=== PATIENT | male | born 1980 | race Caucasian/White ===

== ENCOUNTER 2025-04-16 17:31 | Inpatient (IN) ==
[2025-04-16] MEDS: LORazepam 2 MG/ML VIAL IVP STA ×4 (18:28→19:35)
[2025-04-16] MEDS: SODIUM CHLORIDE 0.9% 1,000 ML IV STA (18:46)
[2025-04-16] MEDS: ONDANSETRON 4 MG/2 ML VIAL IVP STA (18:46)
[2025-04-16 18:53] LABS: HCT - HEMATOCRIT 38.0 % (42.0-52.0); HGB - HEMOGLOBIN 13.1 g/dL (14.0-18.0); MEAN PLATELET VOLUME 11.3 fL (7.4-11.4); NRBC ABSOLUTE COUNT (AUTO) 0.00 x10^3/uL; NUCLEATED RED BLOOD CELLS AUTO 0.0 /100WBC; PLT - PLATELET COUNT 89 10^3/uL (130-450); RED CELL DISTRIBUTION WIDTH 13.9 % (12.0-15.0)
--- NOTE | 2025-04-16 18:54 | ED Physician Documentation ---
History of Present Illness Stated complaint Stated Complaint: DIZZY Chief complaint Chief Complaint: General History obtained from History obtained from: Patient History of Present Illness Timing: Prior to arrival Additonal information Additional information: Patient is a 45-year-old male presenting to the emergency department with agitation being brought in by ambulance from [facility] with concerns for possible stroke as he was having some right knee weakness and right hand weakness. Patient has no history of stroke he admitted himself to [facility] yesterday hector rmed by eye to a staff. Patient able to recall some of his history here but appears to be having active hallucinations and tremors at this time his CIWA on arrival is 19 and he missed his afternoon dose of Ativan after receiving 1 mg every 4 hours. Patient drinks about half a gallon of vodka regularly he has no history of seizures. Discussed with [facility] duff believed patient was having some increased alterations in mentation as well as recurrent falls. He was not following commands as well as increased weakness in right hand when trying to grab the safety bar in the bathroom. WHen first admitted he was able to ambulate but when he was downtrending with increased inability to ambulate. Concerns he cannot meet his own activities of daily living. He must be able to ambulate ands he doesn't fall. They would not accept him back to [facility] if he is cleared here in the emergency department. Meds/Allgy Allergies Allergies Allergy/AdvReac Type Severity Reaction Status Date / Time cashew nut Allergy Unknown Unknown Verified 04/16/25 17:40 PFSH Active Problems All Active Problems (Updated 04/16/25 @ 22:07 by Noah Luke DNP) Delirium tremens (Acute) Social History Social History (Updated 04/16/25 @ 20:51 by Rosio Winn PA-C) Smoking Status: Smoker current status unk Do you feel safe in your home environment?: Yes History of physical, verbal, emotional, or financial abuse?: No POLST Patient has POLST: No Exam Exam Vital Signs: Vital Signs x48h Temp Pulse Resp BP Pulse Ox 04/16/25 23:02 37.4 C 87 16 115/74 100 04/16/25 22:11 119 H 16 154/100 H 100 04/16/25 22:05 129 H 22 184/124 H 99 04/16/25 22:00 118 H 0 L 205/131 H 99 04/16/25 21:56 116 H 0 L 182/126 H 98 04/16/25 21:50 100 22 189/127 H 100 04/16/25 21:48 111 H 0 L 184/99 H 72 L 04/16/25 21:09 99 18 169/91 H 96 04/16/25 20:54 105 H 23 159/95 H 99 04/16/25 20:00 118 H 20 168/112 H 92 04/16/25 17:40 36.7 C 116 H 18 156/97 H 97 Constitutional Agitated on arrival with some distress and diaphoretic Eyes PERRL, EOMs intact bilaterally and conjunctivae normal Neck/C-Spine visual inspection normal Lymph no lymphadenopathy noted Chest inspection of chest normal Respiratory breath sounds equal bilaterally, normal respiratory effort and clear to auscultation bilaterally Cardiovascular Tachycardia Extremities Patient has significant tremors at rest Neurology Patient having obvious hallucinations here in the ED GCS 12 on arrival does appear to have normal speech but not following commands abnormal gait too unstable to even stand alone Psychiatry ANO x 1 Results Vitals Vitals: Vital Signs - 24 hr 04/16/25 17:40 04/16/25 18:04 04/16/25 20:00 Temperature 36.7 C Temperature Source Temporal Artery Scan Pulse Rate 116 H 118 H Respiratory Rate 18 20 Blood Pressure 156/97 H 168/112 H O2 Saturation 97 92 O2 Source Room air Room air FiO2 (%) Pain Intensity 7 0 04/16/25 20:54 04/16/25 21:09 04/16/25 21:48 Temperature Temperature Source Pulse Rate 105 H 99 111 H Respiratory Rate 23 18 0 L Blood Pressure 159/95 H 169/91 H 184/99 H O2 Saturation 99 96 72 L O2 Source Room air Room air FiO2 (%) Pain Intensity 04/16/25 21:50 04/16/25 21:56 04/16/25 22:00 Temperature Temperature Source Pulse Rate 100 116 H 118 H Respiratory Rate 22 0 L 0 L Blood Pressure 189/127 H 182/126 H 205/131 H O2 Saturation 100 98 99 O2 Source Ambu bag Room air Ambu bag FiO2 (%) Pain Intensity 04/16/25 22:05 04/16/25 22:11 04/16/25 23:02 Temperature 37.4 C Temperature Source Core Pulse Rate 129 H 119 H 87 Respiratory Rate 22 16 16 Blood Pressure 184/124 H 154/100 H 115/74 O2 Saturation 99 100 100 O2 Source Ambu bag Mechanical ventilator FiO2 (%) 100 Pain Intensity Oxygen O2 Source Mechanical ventilator Labs Labs: Laboratory Tests 04/16/25 04/16/25 18:47 18:47 WBC 5.4 RBC 3.40 L Hgb 13.1 L Hct 38.0 L MCV 111.8 H MCH 38.5 H MCHC 34.5 RDW 13.9 Plt Count 89 L MPV 11.3 Neut # (Auto) 3.9 Lymph # (Auto) 1.0 L Stokes # (Auto) 0.5 Eos # (Auto) 0.1 Baso # (Auto) 0.0 Absolute Nucleated RBC 0.00 Nucleated RBC % 0.0 Manual Slide Review Indicated WBC Morphology NORMAL APPEARANCE Platelet Estimate DECREASED (<130,000) Platelet Morphology NORMAL APPEARANCE RBC Morph Micro Appear 2+ MACROCYTOSIS 1+ STOMATOCYTES Sodium 134 L Potassium 3.8 Chloride 97 L Carbon Dioxide 27 Anion Gap 10.0 BUN 8 Creatinine 0.6 Estimated GFR (MDRD) 144 Glucose 105 H Calcium 9.3 Magnesium 1.4 L Total Bilirubin 2.0 H AST 78 H ALT 35 Alkaline Phosphatase 93 Total Protein 6.6 Albumin 4.0 Globulin 2.6 Albumin/Globulin Ratio 1.5 PD Medical Decision Making ED course Complexity details: reviewed old records and reviewed results ED course: Patient 45-year-old female CIWA's 19 on arrival being brought from by tomorrow for recurrent falls and difficulty following commands with increased weakness specifically noted to his right knee where he has had multiple falls he drink about half a gallon of vodka regularly was sent over by eye to after receiving oral Ativan every 4 hours with progressively worsening symptoms including increased tremors difficulty following commands and recurrent falls. Patient was essentially wheelchair-bound when transferred from [facility] to the emergency department. On arrival patient has a CIWA of 19. He has significant tremors and appears to be hallucinating here in the ED he is IV Ativan dose of 2 mg was ordered initially here in the ED. Multiple attempts were made to redirect patient and have him stay here in the ED howeverREstraints Patient placed for patient as he was attempting to get out of bed he is A and O x 1 not answering questions appropriately hallucinating unable to even stand without assistance due to significant tremors he had active hallucinations stating he needs to move out of his house. Says he would call the police if he has troubles while he is at home with ambulating. He reports he wants to go home but unable to provide where his home is or how he would get there. He is unable to state the date stating stating it is 1919 and that he is unable to report what town or hospital he is in. Patient was given phenobarbital and 8 of Ativan without relief. Patient was placed on a Precedex drip and intubated here in the emergency department for concerns of persistent agitation here in the emergency department. He has no leukocytosis his CMP shows no significant MILES he has some mild hypomagnesemia and elevation of AST at 78 most likely consistent with alcohol abuse. Urine analysis pending at this time see intubation note via [facility]. CXR shows NG and ET in place. CT head shows no acute findings. Discussed case with [facility] nurse practitioner who accepts patient to the ICU for first year of your alcohol withdrawals with seizures Restraint Peiw-le-Ebk[facility] Immediate Situation Face to Face Evaluation Date: 04/16/25 Face to Face Evaluation Time: 19:40 Restraint Type: Violent, physical Patient's Reaction & Behaviors Safety: Physically unsafe, Non-compliant and Unable to Follow Commands Verbal: Demanding, Screaming/Yelling and Swearing Harm: Actual harm to others and Potential harm to self Physical: Aggressive behavior, Fighting restraints, Spitting and Kicking Other: Attempting removal of medically necessary device(s) Behavioral Condition Attitude: Guarded Behavior: Uncooperative and Belligerent Orientation: Person Mood: Angry and Anxious Behavioral Condition Comments: Patient anxious and attempting to leave he is not safe to himself for others. he does not know where he is or the date and has no plans on if he is to leave Evaluation Pertinent History/Illicit Drugs/Medications/Results: Patient labs are downtrends . Plan Need to Initiate/Renew Violent or Chemical Restraint: Plan to renew at one hour and re-evaluate patient at 8pm for re-evaluation of symptoms. Patient remains beligerent despite physical restraints and ativan treatment, severe withdrawal symptoms and CIWA of 19 when restraints placed.
[2025-04-16 19:02] LABS: SLIDE REVIEW? Indicated
[2025-04-16 19:21] LABS: PLATELET ESTIMATE, MANUAL DECREASED (<130,000) (NORMAL); PLATELET MORPHOLOGY NORMAL APPEARANCE (NORMAL)
[2025-04-16 19:22] LABS: WBC MORPHOLOGY (MULTIPLE) NORMAL APPEARANCE (NORMAL)
[2025-04-16 19:42] LABS: ALT ALANINE AMINOTRANSFERASE 35.0 IU/L (10-60); AST ASPARTATE AMINOTRANSFERASE 78.0 IU/L (10-42); BUN - BLOOD UREA NITROGEN 8.0 mg/dL (6-20); CARBON DIOXIDE - CO2 27.0 mmol/L (21-32); CREATININE 0.6 mg/dL (0.6-1.3); GFR - MDRD 144.0 (>89)
--- NOTE | 2025-04-16 20:27 | XRAY Report ---
PROCEDURE: XR Knee 4+V RT INDICATIONS: right knee pain and swelling from injury TECHNIQUE: 4 views of the knee(s) were acquired. COMPARISON: None. FINDINGS: Bones: No fractures or dislocations. Mild tricompartmental osteoarthritis is seen more notably in medial femoral tibial compartments. No significant patellar subluxation. No suspicious bony lesions. Soft tissues: Small knee joint effusion. Chondrocalcinosis in medial and lateral femoral tibial compartments are noted. IMPRESSION: 1. No acute right knee fracture or dislocation. 2. Mild tricompartmental osteoarthritis and chondromalacia with chondrocalcinosis as above. Small joint effusion. Reviewed by: Almas Nugent MD on 04/16/2025 8:25 PM PDT Approved by: Almas Nugent MD on 04/16/2025 8:25 PM PDT Station ID: [id number]
[2025-04-16] MEDS: LORazepam 2 MG/ML VIAL IVP PRN (20:41)
[2025-04-16] MEDS ORDERED: LORazepam 2 MG/ML VIAL IVP PRN (20:55)
[2025-04-16] MEDS: DEXMEDETOMIDINE 400 MCG/100 ML 100 ML IV PRN (20:56)
--- NOTE | 2025-04-16 21:00 | HISTORY & PHYSICAL EXAMINATION ---
Chief Complaint Chief Complaint Chief Complaint: Alcohol withdrawal History of Present Illness Admitted From Admitted From:: [facility] History Obtained From Exam Limitations: Patient actively withdrawal alcohol History of Present Illness HPI Comment/Other: 45-year-old male who presents from [facility] with alterations in mentation. Facility reported some right sided weakness. They report that most of the falls were to his knees In the ER, lab work was overall unremarkable other than a magnesium of 1.4. Knee x-ray was obtained which showed no acute findings. He received multiple doses of Ativan and phenobarbital x 1, and still required violent restraints. CT head was performed with no acute findings. He was intubated in the ED for severe delirium tremens hospitalist was contacted for admission for delirium tremens Meds/Allgy Allergies Allergies Allergy/AdvReac Type Severity Reaction Status Date / Time cashew nut Allergy Unknown Unknown Verified 04/16/25 17:40 PFSH Active Problems All Active Problems (Updated 04/17/25 @ 00:00 by Elaine Kowalski MD) Delirium tremens (Acute) Social History Social History (Updated 04/16/25 @ 20:51 by Rosio Winn PA-C) Smoking Status: Smoker current status unk Do you feel safe in your home environment?: Yes History of physical, verbal, emotional, or financial abuse?: No POLST Patient has POLST: No Review of Systems Status of ROS: unobtainable due to endotracheal tube Exam Exam Vital Signs: Vital Signs x48h Temp Pulse Resp BP Pulse Ox 04/16/25 23:32 37.1 C 74 16 140/96 H 100 04/16/25 23:02 37.4 C 87 16 115/74 100 04/16/25 22:11 119 H 16 154/100 H 100 04/16/25 22:05 111 H 04/16/25 22:05 129 H 22 184/124 H 99 04/16/25 22:00 118 H 0 L 205/131 H 99 04/16/25 21:56 116 H 0 L 182/126 H 98 04/16/25 21:50 100 22 189/127 H 100 04/16/25 21:48 111 H 0 L 184/99 H 72 L 04/16/25 21:09 99 18 169/91 H 96 04/16/25 20:54 105 H 23 159/95 H 99 04/16/25 20:00 118 H 20 168/112 H 92 04/16/25 17:40 36.7 C 116 H 18 156/97 H 97 Constitutional Disheveled male, sedated on ventilator HENMT normocephalic and head/scalp atraumatic Eyes PERRL Respiratory Mechanical breath sounds Cardiovascular normal heart rate noted and regular rhythm noted Gastrointestinal abdomen normal to inspection and abdomen soft to palpation Extremities normal to inspection Neurology Sedated on vent Psychiatry Sedated on vent Skin skin color normal Conclusion/Plan Problem List (1) Delirium tremens: Plan: Per facility, patient drinks half a liter of liquor every day Received multiple doses of Ativan as well as phenobarbital and was placed on Precedex drip with no effect Intubated in ED Maintain on ventilator per RT protocol Vent bundle Maintain intubation/sedation overnight, evaluate for ventilator liberation in the morning Sedation with Fentanyl, Versed, propofol Restraints to protect airway Thiamine IV push x 1 Would benefit from banana bag daily while intubated, then multivitamin and oral thiamine afterwards. Banana bags are unavailable after hours Plan Admitted patient ICU No family available for interview, will maintain full code for now Lab Results Lab results reviewed: Yes 04/16/25 18:47 04/16/25 18:47 Diagnostic Imaging Results Diagnostic Imaging Results: positive Final report reviewed Core Measures DVT/VTE - Prophylaxis VTE/DVT Prophylaxis med ordered at admit?: Yes
[2025-04-16] MEDS: MAGNESIUM SULFATE 2 GRAM 2 GM/50 ML BAG IV ONE (21:15)
[2025-04-16] MEDS: ROCURONIUM 50 MG/5 ML VIAL IVP STA (21:46)
[2025-04-16] MEDS: ETOMIDATE 40 MG/20 ML VIAL IVP STA ×2 (21:46→22:00)
[2025-04-16] MEDS: MIDAZOLAM DRIP 50 MG/50 ML 50 MG/50 ML BAG IV SCH (22:05)
--- NOTE | 2025-04-16 22:15 | ED Physician Documentation ---
ED Addendum Addendum Addendum: I was called to the bedside by our RT with concern for patient severe alcohol withdrawal and potential need for intubation for airway protection and to facilitate head CT to r/o traumatic bleed given history of falls. 100 mg rocuronium and 20mg etomidate administered for induction agents and Hyperangulated mac 4 used with rigid stylette and 8-0 ett. patient had a very anterior airway and required three attempts including bougie attempt. MOBILE MANAGER came to assist with intubation and airway confirmed by direct visualization on c mac, BL breath sounds, color change calorimeter, and CXR. og tube placed and confirmed on xr. Discharge Plan Discharge Print Language: Mohawk Stand Alone Forms: PCP List
--- NOTE | 2025-04-16 22:23 | XRAY Report ---
PROCEDURE: XR Chest 1V INDICATIONS: confirm tube placement TECHNIQUE: One view of the chest was acquired. COMPARISON: None. FINDINGS: Surgical changes and devices: NG tube tip is below the left hemidiaphragm and is in expected location of mid to distal stomach lumen.. Lungs and pleura: No pleural effusions or pneumothorax. No consolidation. Mediastinum: Mediastinal contours appear normal. Heart size is enlarged. Bones and chest wall: No suspicious bony lesions. Overlying soft tissues appear unremarkable. IMPRESSION: NG tube is in satisfactory position. Cardiomegaly. No focal infiltrate, pleural effusion or pneumothorax. Reviewed by: Almas Nugent MD on 04/16/2025 10:21 PM PDT Approved by: Almas Nugent MD on 04/16/2025 10:21 PM PDT Station ID: [id number]
--- NOTE | 2025-04-16 23:09 | CT Report ---
PROCEDURE: CT Head WO INDICATIONS: concern for recurrent falls TECHNIQUE: CT of the head was performed, without intravenous contrast. Reformats: Coronal and sagittal. For radiation dose reduction, the following was used: automated exposure control, adjustment of mA and/or kV according to patient size. COMPARISON: None. FINDINGS: Image quality: Diagnostic. CSF spaces: Basal cisterns are patent. No extra-axial fluid collections. Ventricles are normal in size and shape. Brain: No midline shift. No intracranial mass effect or hemorrhage. Martinez- white matter interface is normal. No significant periventricular white matter hypoattenuation or volume loss. Skull and face: Calvarium and visualized facial bones are intact, without suspicious lesions. Sinuses: Visualized sinuses and mastoids are clear. In particular band NG tube are seen. IMPRESSION: No acute intracranial pathology. Patient is status post intubation. Reviewed by: Almas Seals MD on 04/16/2025 11:07 PM PDT Approved by: Almas Seals MD on 04/16/2025 11:07 PM PDT Station ID: [id number]
[2025-04-16 23:24] LABS: GLUCOSE, URINE (UA) NEGATIVE (NEGATIVE); KETONES,URINE (UA) NEGATIVE (NEGATIVE); OCCULT BLOOD,URINE NEGATIVE (NEGATIVE)
[2025-04-17 00:11] LABS: AMPHETAMINE SCREEN,URINE NEGATIVE (NEGATIVE); BARBITURATE SCREEN,UR NEGATIVE (NEGATIVE); BENZODIAZEPINES SCREEN, URINE POSITIVE (NEGATIVE); BUPRENORPHINE SCREEN, URINE NEGATIVE (NEGATIVE); COCAINE SCREEN URINE NEGATIVE (NEGATIVE); METHADONE SCREEN, URINE NEGATIVE (NEGATIVE); METHAMPHETAMINES SCREEN, URINE NEGATIVE (NEGATIVE); OPIATE SCREEN, URINE NEGATIVE (NEGATIVE); THC CANNABINOID SCREEN, URINE NEGATIVE (NEGATIVE)
[2025-04-17 00:19] LABS: ABG BASE EXCESS 4.6 mmol/L (-2.0-3.0); ABG HCO3 29.7 mmol/L (22.0-26.0); ABG MODE OF VENTILATION ASSIST/CONTROL; ABG OXYGEN SATURATION 100 % (95-98); ABG PCO2 49 mmHg (34-45); ABG PH 7.39 (7.35-7.45); ABG PO2 421 mmHg (83-108); ABG RESPIRATORY RATE 16 b/min; ABG TCO2 31.2 mmol/L (21.0-29.0)
[2025-04-17 00:20] LABS: ABG FRACTION OF INSPIRED O2 100.00
[2025-04-17] MEDS: PROPOFOL 1000 MG/100 ML 1,000 MG/100 ML BOTTLE IV SCH (00:45)
[2025-04-17] MEDS: SODIUM CHLORIDE 0.9% 1,000 ML IV SCH (00:46)
[2025-04-17] MEDS: LACTATED RINGERS 1,000 ML IV SCH (00:57)
[2025-04-17] MEDS: THIAMINE 100 MG/1 ML 2 ML MDV IVP ONE (01:08)
[2025-04-17] MEDS: SODIUM CHLORIDE FLUSH 0.9% 10 ML SYRINGE IVP SCH (01:08)
[2025-04-17] MEDS: MIDAZOLAM DRIP 50 MG/50 ML 50 MG/50 ML BAG IV SCH (02:32)
[2025-04-17 04:49] LABS: HCT - HEMATOCRIT 35.9 % (42.0-52.0); HGB - HEMOGLOBIN 12.4 g/dL (14.0-18.0); MEAN PLATELET VOLUME 11.5 fL (7.4-11.4); NRBC ABSOLUTE COUNT (AUTO) 0.00 x10^3/uL; NUCLEATED RED BLOOD CELLS AUTO 0.0 /100WBC; PLT - PLATELET COUNT 85 10^3/uL (130-450); RED CELL DISTRIBUTION WIDTH 14.1 % (12.0-15.0)
[2025-04-17 04:58] LABS: SLIDE REVIEW? Indicated
[2025-04-17 05:03] LABS: BUN - BLOOD UREA NITROGEN 7.0 mg/dL (6-20); CARBON DIOXIDE - CO2 29.0 mmol/L (21-32); CREATININE 0.6 mg/dL (0.6-1.3); GFR - MDRD 144.0 (>89)
[2025-04-17 05:27] LABS: PHOSPHORUS 3.7 mg/dL (2.5-5.0)
[2025-04-17 05:37] LABS: PLATELET ESTIMATE, MANUAL DECREASED (<130,000) (NORMAL); PLATELET MORPHOLOGY 1+ GIANT PLATELETS (NORMAL); RBC MORPHOLOGY (MULTIPLE) 2+ MACROCYTOSIS (NORMAL)
[2025-04-17] MEDS: SODIUM CHLORIDE FLUSH 0.9% 10 ML SYRINGE IVP PRN (06:00)
[2025-04-17] MEDS: POTASSIUM CHLOR 10 MEQ/100 ML 10 MEQ/100 ML BAG IV SCH (06:15)
[2025-04-17] MEDS: PANTOPRAZOLE 40 MG VIAL IVP SCH (06:17)
[2025-04-17 06:32] LABS: VBG PH 7.358 (7.31-7.41)
[2025-04-17] MEDS ORDERED: SODIUM CHLORIDE 0.9% 250 ML IV ONE (06:49)
[2025-04-17] MEDS: FAMOTIDINE 20 MG/2 ML VIAL IVP SCH (08:54)
[2025-04-17] MEDS: ACETAMINOPHEN 1,000 MG/100 ML 1,000 MG/100 ML BAG IV PRN (08:54)
[2025-04-17] MEDS: CHLORHEXIDINE GLUCONATE 15 ML UDC PO SCH (08:55)
[2025-04-17 10:10] LABS: OCCULT BLOOD,URINE LARGE (NEGATIVE)
[2025-04-17 10:11] LABS: GLUCOSE, URINE (UA) NEGATIVE (NEGATIVE)
[2025-04-17 10:17] LABS: SQUAMOUS EPITHELIAL CELL,UR RARE Squamous (<= Few)
[2025-04-17] MEDS: ENOXAPARIN 40 MG/0.4 ML SYRINGE SUBQ SCH (10:51)
--- NOTE | 2025-04-17 12:10 | PROVIDER PROGRESS NOTE ---
Subjective Prog Note Date Prog Note Date: 04/17/25 Subjective Subjective: intubated. He is currently off propofol/fentanyl/versed. Reportedly lives with mother, but legally is . He is estranged reportedly from his spouse. Plan for for him to head from detox to rehab at [facility]. he has a sponsor, Jonas Lorenzo, that will take him there when the time comes. Right now, he opens eyes to voice and follows commands. We are changing him to Precedex for sedation. Current Medications Current Medications Current Medications: Current Medications Generic Name Dose Route Start Last Admin Trade Name Freq PRN Reason Stop Dose Admin Acetaminophen 650 mg 04/16/25 23:33 Acetaminophen 325 Mg Tablet PO Q4HR PRN Pain 1 to 4, or Fever Chlordiazepoxide HCl 50 mg 04/17/25 12:00 Chlordiazepoxide 25 Mg Capsule PO Q6HR MANPREET Chlorhexidine Gluconate 15 ml 04/17/25 09:00 04/17/25 08:55 Chlorhexidine Gluconate 15 Ml Udc PO 15 ml BID MANPREET Administration Enoxaparin Sodium 40 mg 04/17/25 09:00 04/17/25 10:51 Enoxaparin 40 Mg/0.4 Ml Syringe SUBQ Not Given DAILY MANPREET Famotidine 20 mg 04/17/25 09:00 04/17/25 08:54 Famotidine 20 Mg/2 Ml Vial IVP 20 mg BID MANPREET Administration Fentanyl 2,500 mcg/ Sodium 250 mls @ 11.56 mls/hr 04/16/25 23:45 04/17/25 09:35 Chloride IV 0 mcg/kg/hr .[id number] MANPREET 0 mls/hr Protocol Titration 1 MCG/KG/HR Midazolam HCl 50 mg in 50 mls @ 4.624 mls/hr 04/16/25 23:45 04/17/25 09:35 Versed Drip 50 Mg/50 Ml IV Infused .[id number] MANPREET Titration Protocol 0.04 MG/KG/HR Propofol 1,000 mg in 100 mls @ 6.936 mls/hr 04/16/25 23:45 04/17/25 04:14 Diprivan IV 0 mcg/kg/min .[id number] MANPREET 0 mls/hr Protocol Titration 10 MCG/KG/MIN Sodium Chloride 1,000 mls @ 125 mls/hr 04/17/25 01:00 04/17/25 08:54 Normal Saline 0.9% IV 125 mls/hr .Q8H MANPREET Administration Acetaminophen 1,000 mg in 100 mls @ 400 mls/hr 04/17/25 08:31 04/17/25 09:10 Acetaminophen IV Infused Q6HR PRN Infusion Fever >101 Dexmedetomidine/Sodium Chloride 100 mls @ 5.75 mls/hr 04/17/25 12:00 Precedex Premix IV .[id number] MANPREET Protocol 0.2 MCG/KG/HR Lactated Ringer's 1,000 mls @ 999 mls/hr 04/17/25 11:58 Lr IV 04/17/25 12:58 ONCE ONE Pantoprazole Sodium 40 mg 04/17/25 07:00 04/17/25 06:17 Pantoprazole 40 Mg Vial IVP 40 mg QDAC MANPREET Administration Sodium Chloride 10 ml 04/17/25 01:00 04/17/25 08:55 Sodium Chloride Flush 0.9% 10 Ml Syringe IVP 10 ml 0100,0900,1700 MANPREET Administration Sodium Chloride 10 ml 04/16/25 23:33 04/17/25 06:00 Sodium Chloride Flush 0.9% 10 Ml Syringe IVP 10 ml PRN PRN Administration NEEDED PER PROVIDER ORDERS Objective Vital Signs/Intake & Output Reviewed Vital Signs: Yes Vital Signs: Vital Signs x48h Temp Pulse Pulse Resp BP Pulse Ox 04/17/25 12:00 127 H 17 109/68 97 04/17/25 11:00 39.5 C H 122 H 17 111/70 95 04/17/25 10:12 125 H 04/17/25 10:00 39.6 C H 126 H 21 107/73 96 04/17/25 09:00 134 H 14 101/70 94 04/17/25 09:00 39.6 C H 04/17/25 08:00 38.7 C H 120 H 18 110/66 96 04/17/25 07:07 88 04/17/25 07:00 38.2 C H 108 H 19 97/61 98 04/17/25 06:00 38.0 C H 100 16 107/69 96 04/17/25 05:07 78 04/17/25 05:00 37.5 C 82 16 89/66 L 96 04/17/25 04:34 37.4 C 80 16 92/60 96 Intake & Output: Intake & Output 04/14/25 04/15/25 04/16/25 04/17/25 23:59 23:59 23:59 23:59 Intake Total 1079 / 1080 1735 / 1735 Output Total 1994 Balance 1079 / 1079 -260 / -260 Weight (kg) 115.6 kg 115 kg Objective General Appearance: positive Other (intubated, febrile) Eyes Bilateral: positive Normal inspection ENT: positive ENT inspection nml Neck: positive Nml inspection Respiratory: positive Chest non-tender, No respiratory distress and Rhonchi (throughout) Cardiovascular: positive Tachycardia (sinus tachycardia) Abdomen: positive Non-tender and Other (obese abdomen. bilious drainage from OGT- no coffee grounds) Skin: positive Color nml Extremities: positive Non-tender and No pedal edema Neurologic/Psychiatric: positive Other (opens eyes to voice, follows commands, non verbal due to intubated. ) Lab Results 04/17/25 04:31 04/17/25 04:31 Other Labs: Lab Results x24hrs 04/17/25 04/17/25 04/17/25 Range/Units 09:13 08:49 08:48 WBC (4.8-10.8) x10^3/uL RBC (4.70-6.10) 10^6/uL Hgb (14.0-18.0) g/dL Hct (42.0-52.0) % MCV (80.0-94.0) fL MCH (27.0-31.0) pg MCHC (32.0-36.0) g/dL RDW (12.0-15.0) % Plt Count (130-450) 10^3/uL MPV (7.4-11.4) fL Neut # (Auto) (1.5-6.6) 10^3/uL Lymph # (Auto) (1.5-3.5) 10^3/uL Powell # (Auto) (0.0-1.0) 10^3/uL Eos # (Auto) (0.0-0.7) 10^3/uL Baso # (Auto) (0.0-0.1) 10^3/uL Absolute Nucleated RBC x10^3/uL Nucleated RBC % /100WBC Manual Slide Review WBC Morphology (NORMAL) Platelet Estimate (NORMAL) Platelet Morphology (NORMAL) RBC Morph Micro Appear (NORMAL) Bld Gas Analysis Time Sample Site ABG pH (7.35-7.45) ABG pCO2 (34-45) mmHg ABG pO2 (83-108) mmHg ABG HCO3 (22.0-26.0) mmol/L ABG Total CO2 (21.0-29.0) mmol/L ABG O2 Saturation (95-98) % ABG Base Excess (-2.0-3.0) mmol/L Pierce Test VBG pH (7.31-7.41) Ionized Calcium (1.09-1.30) mmol/L Respiration Rate b/min O2 Delivery Device Vent Mode FiO2 PEEP cmH2O Sodium (135-145) mmol/L Potassium (3.5-4.5) mmol/L Chloride (101-111) mmol/L Carbon Dioxide (21-32) mmol/L Anion Gap (6-13) BUN (6-20) mg/dL Creatinine (0.6-1.3) mg/dL Estimated GFR (MDRD) (>89) Glucose (74-104) mg/dL Lactic Acid 1.5 (0.5-2.2) mmol/L Calcium (8.5-10.3) mg/dL Phosphorus (2.5-5.0) mg/dL Magnesium (1.7-2.3) mg/dL Total Bilirubin (0.2-1.0) mg/dL AST (10-42) IU/L ALT (10-60) IU/L Alkaline Phosphatase (42-121) IU/L Total Creatine Kinase 2569 H* (30-223) IU/L Total Protein (6.4-8.9) g/dL Albumin (3.2-5.5) g/dL Globulin (2.1-4.2) g/dL Albumin/Globulin Ratio (1.0-2.2) Urine Color DK. ORANGE Urine Clarity HAZY (CLEAR) Urine pH 6.0 (5.0-7.5) PH Ur Specific Pavo 1.015 (1.002-1.030) Urine Protein (NEGATIVE) mg/dL Urine Glucose (UA) NEGATIVE (NEGATIVE) mg/dL Urine Ketones (NEGATIVE) mg/dL Urine Occult Blood LARGE (NEGATIVE) Urine Nitrite (NEGATIVE) Urine Bilirubin COLOR INTERFERENCE (NEGATIVE) Urine Urobilinogen (NORMAL) E.U./dL Ur Leukocyte Esterase (NEGATIVE) Urine RBC 0-5 (0-5) /HPF Urine WBC 0-3 (0-3) /HPF Ur Squamous Epith Cells RARE Squamous (<= Few) Urine Bacteria Few (None Seen) /HPF Ur Microscopic Review Urine Culture Comments NOT INDICATED Nasal Screen MRSA (PCR) (NEGATIVE) Urine Opiates Screen (NEGATIVE) Ur Buprenorphine Scrn (NEGATIVE) Ur Oxycodone Screen (NEGATIVE) Urine Methadone Screen (NEGATIVE) Urine Fentanyl Screen (NEGATIVE) Ur Barbiturates Screen (NEGATIVE) Ur Tricyclics Screen (NEGATIVE) Ur Phencyclidine Scrn (NEGATIVE) Ur Amphetamine Screen (NEGATIVE) U Methamphetamines Scrn (NEGATIVE) U Benzodiazepines Scrn (NEGATIVE) Urine Cocaine Screen (NEGATIVE) U Cannabinoids Screen (NEGATIVE) Ur Drug Screen Comment 04/17/25 04/17/25 04/17/25 Range/Units 05:38 04:31 00:14 WBC 5.1 (4.8-10.8) x10^3/uL RBC 3.17 L (4.70-6.10) 10^6/uL Hgb 12.4 L (14.0-18.0) g/dL Hct 35.9 L (42.0-52.0) % MCV 113.2 H (80.0-94.0) fL MCH 39.1 H (27.0-31.0) pg MCHC 34.5 (32.0-36.0) g/dL RDW 14.1 (12.0-15.0) % Plt Count 85 L (130-450) 10^3/uL MPV 11.5 H (7.4-11.4) fL Neut # (Auto) 3.3 (1.5-6.6) 10^3/uL Lymph # (Auto) 1.3 L (1.5-3.5) 10^3/uL Powell # (Auto) 0.4 (0.0-1.0) 10^3/uL Eos # (Auto) 0.1 (0.0-0.7) 10^3/uL Baso # (Auto) 0.0 (0.0-0.1) 10^3/uL Absolute Nucleated RBC 0.00 x10^3/uL Nucleated RBC % 0.0 /100WBC Manual Slide Review Indicated WBC Morphology (NORMAL) Platelet Estimate DECREASED (<130,000) (NORMAL) Platelet Morphology 1+ GIANT PLATELETS (NORMAL) RBC Morph Micro Appear 2+ MACROCYTOSIS (NORMAL) Bld Gas Analysis Time Sample Site ABG pH (7.35-7.45) ABG pCO2 (34-45) mmHg ABG pO2 (83-108) mmHg ABG HCO3 (22.0-26.0) mmol/L ABG Total CO2 (21.0-29.0) mmol/L ABG O2 Saturation (95-98) % ABG Base Excess (-2.0-3.0) mmol/L Pierce Test VBG pH 7.358 (7.31-7.41) Ionized Calcium 1.15 (1.09-1.30) mmol/L Respiration Rate b/min O2 Delivery Device Vent Mode FiO2 PEEP cmH2O Sodium 137 (135-145) mmol/L Potassium 3.6 (3.5-4.5) mmol/L Chloride 103 (101-111) mmol/L Carbon Dioxide 29 (21-32) mmol/L Anion Gap 5.0 L (6-13) BUN 7 (6-20) mg/dL Creatinine 0.6 (0.6-1.3) mg/dL Estimated GFR (MDRD) 144 (>89) Glucose 94 (74-104) mg/dL Lactic Acid (0.5-2.2) mmol/L Calcium 8.8 (8.5-10.3) mg/dL Phosphorus 3.7 (2.5-5.0) mg/dL Magnesium 2.0 (1.7-2.3) mg/dL Total Bilirubin (0.2-1.0) mg/dL AST (10-42) IU/L ALT (10-60) IU/L Alkaline Phosphatase (42-121) IU/L Total Creatine Kinase (30-223) IU/L Total Protein (6.4-8.9) g/dL Albumin (3.2-5.5) g/dL Globulin (2.1-4.2) g/dL Albumin/Globulin Ratio (1.0-2.2) Urine Color Urine Clarity (CLEAR) Urine pH (5.0-7.5) PH Ur Specific Pavo (1.002-1.030) Urine Protein (NEGATIVE) mg/dL Urine Glucose (UA) (NEGATIVE) mg/dL Urine Ketones (NEGATIVE) mg/dL Urine Occult Blood (NEGATIVE) Urine Nitrite (NEGATIVE) Urine Bilirubin (NEGATIVE) Urine Urobilinogen (NORMAL) E.U./dL Ur Leukocyte Esterase (NEGATIVE) Urine RBC (0-5) /HPF Urine WBC (0-3) /HPF Ur Squamous Epith Cells (<= Few) Urine Bacteria (None Seen) /HPF Ur Microscopic Review Urine Culture Comments Nasal Screen MRSA (PCR) NEGATIVE (NEGATIVE) Urine Opiates Screen (NEGATIVE) Ur Buprenorphine Scrn (NEGATIVE) Ur Oxycodone Screen (NEGATIVE) Urine Methadone Screen (NEGATIVE) Urine Fentanyl Screen (NEGATIVE) Ur Barbiturates Screen (NEGATIVE) Ur Tricyclics Screen (NEGATIVE) Ur Phencyclidine Scrn (NEGATIVE) Ur Amphetamine Screen (NEGATIVE) U Methamphetamines Scrn (NEGATIVE) U Benzodiazepines Scrn (NEGATIVE) Urine Cocaine Screen (NEGATIVE) U Cannabinoids Screen (NEGATIVE) Ur Drug Screen Comment 04/17/25 04/16/25 04/16/25 Range/Units 00:05 23:12 18:47 WBC (4.8-10.8) x10^3/uL RBC (4.70-6.10) 10^6/uL Hgb (14.0-18.0) g/dL Hct (42.0-52.0) % MCV (80.0-94.0) fL MCH (27.0-31.0) pg MCHC (32.0-36.0) g/dL RDW (12.0-15.0) % Plt Count (130-450) 10^3/uL MPV (7.4-11.4) fL Neut # (Auto) (1.5-6.6) 10^3/uL Lymph # (Auto) (1.5-3.5) 10^3/uL Powell # (Auto) (0.0-1.0) 10^3/uL Eos # (Auto) (0.0-0.7) 10^3/uL Baso # (Auto) (0.0-0.1) 10^3/uL Absolute Nucleated RBC x10^3/uL Nucleated RBC % /100WBC Manual Slide Review WBC Morphology (NORMAL) Platelet Estimate (NORMAL) Platelet Morphology (NORMAL) RBC Morph Micro Appear 1+ STOMATOCYTES (NORMAL) Bld Gas Analysis Time 0014 Sample Site RIGHT RADIAL ABG pH 7.39 (7.35-7.45) ABG pCO2 49 H (34-45) mmHg ABG pO2 421 H (83-108) mmHg ABG HCO3 29.7 H (22.0-26.0) mmol/L ABG Total CO2 31.2 H (21.0-29.0) mmol/L ABG O2 Saturation 100 H (95-98) % ABG Base Excess 4.6 H (-2.0-3.0) mmol/L Pierce Test POSITIVE VBG pH (7.31-7.41) Ionized Calcium (1.09-1.30) mmol/L Respiration Rate 16 b/min O2 Delivery Device VENTILATOR Vent Mode ASSIST/CONTROL FiO2 100.00 PEEP 10 cmH2O Sodium 134 L (135-145) mmol/L Potassium 3.8 (3.5-4.5) mmol/L Chloride 97 L (101-111) mmol/L Carbon Dioxide 27 (21-32) mmol/L Anion Gap 10.0 (6-13) BUN 8 (6-20) mg/dL Creatinine 0.6 (0.6-1.3) mg/dL Estimated GFR (MDRD) 144 (>89) Glucose 105 H (74-104) mg/dL Lactic Acid (0.5-2.2) mmol/L Calcium 9.3 (8.5-10.3) mg/dL Phosphorus (2.5-5.0) mg/dL Magnesium 1.4 L (1.7-2.3) mg/dL Total Bilirubin 2.0 H (0.2-1.0) mg/dL AST 78 H (10-42) IU/L ALT 35 (10-60) IU/L Alkaline Phosphatase 93 (42-121) IU/L Total Creatine Kinase (30-223) IU/L Total Protein 6.6 (6.4-8.9) g/dL Albumin 4.0 (3.2-5.5) g/dL Globulin 2.6 (2.1-4.2) g/dL Albumin/Globulin Ratio 1.5 (1.0-2.2) Urine Color YELLOW Urine Clarity CLEAR (CLEAR) Urine pH 8.0 H (5.0-7.5) PH Ur Specific Pavo 1.010 (1.002-1.030) Urine Protein NEGATIVE (NEGATIVE) mg/dL Urine Glucose (UA) NEGATIVE (NEGATIVE) mg/dL Urine Ketones NEGATIVE (NEGATIVE) mg/dL Urine Occult Blood NEGATIVE (NEGATIVE) Urine Nitrite NEGATIVE (NEGATIVE) Urine Bilirubin NEGATIVE (NEGATIVE) Urine Urobilinogen 0.2 (NORMAL) (NORMAL) E.U./dL Ur Leukocyte Esterase NEGATIVE (NEGATIVE) Urine RBC (0-5) /HPF Urine WBC (0-3) /HPF Ur Squamous Epith Cells (<= Few) Urine Bacteria (None Seen) /HPF Ur Microscopic Review NOT INDICATED Urine Culture Comments NOT INDICATED Nasal Screen MRSA (PCR) (NEGATIVE) Urine Opiates Screen NEGATIVE (NEGATIVE) Ur Buprenorphine Scrn NEGATIVE (NEGATIVE) Ur Oxycodone Screen NEGATIVE (NEGATIVE) Urine Methadone Screen NEGATIVE (NEGATIVE) Urine Fentanyl Screen Negative (NEGATIVE) Ur Barbiturates Screen NEGATIVE (NEGATIVE) Ur Tricyclics Screen NEGATIVE (NEGATIVE) Ur Phencyclidine Scrn NEGATIVE (NEGATIVE) Ur Amphetamine Screen NEGATIVE (NEGATIVE) U Methamphetamines Scrn NEGATIVE (NEGATIVE) U Benzodiazepines Scrn POSITIVE H (NEGATIVE) Urine Cocaine Screen NEGATIVE (NEGATIVE) U Cannabinoids Screen NEGATIVE (NEGATIVE) Ur Drug Screen Comment CUTOFF CONC BELOW: 04/16/25 Range/Units 18:47 WBC 5.4 (4.8-10.8) x10^3/uL RBC 3.40 L (4.70-6.10) 10^6/uL Hgb 13.1 L (14.0-18.0) g/dL Hct 38.0 L (42.0-52.0) % MCV 111.8 H (80.0-94.0) fL MCH 38.5 H (27.0-31.0) pg MCHC 34.5 (32.0-36.0) g/dL RDW 13.9 (12.0-15.0) % Plt Count 89 L (130-450) 10^3/uL MPV 11.3 (7.4-11.4) fL Neut # (Auto) 3.9 (1.5-6.6) 10^3/uL Lymph # (Auto) 1.0 L (1.5-3.5) 10^3/uL Powell # (Auto) 0.5 (0.0-1.0) 10^3/uL Eos # (Auto) 0.1 (0.0-0.7) 10^3/uL Baso # (Auto) 0.0 (0.0-0.1) 10^3/uL Absolute Nucleated RBC 0.00 x10^3/uL Nucleated RBC % 0.0 /100WBC Manual Slide Review Indicated WBC Morphology NORMAL APPEARANCE (NORMAL) Platelet Estimate DECREASED (<130,000) (NORMAL) Platelet Morphology NORMAL APPEARANCE (NORMAL) RBC Morph Micro Appear 2+ MACROCYTOSIS (NORMAL) Bld Gas Analysis Time Sample Site ABG pH (7.35-7.45) ABG pCO2 (34-45) mmHg ABG pO2 (83-108) mmHg ABG HCO3 (22.0-26.0) mmol/L ABG Total CO2 (21.0-29.0) mmol/L ABG O2 Saturation (95-98) % ABG Base Excess (-2.0-3.0) mmol/L Pierce Test VBG pH (7.31-7.41) Ionized Calcium (1.09-1.30) mmol/L Respiration Rate b/min O2 Delivery Device Vent Mode FiO2 PEEP cmH2O Sodium (135-145) mmol/L Potassium (3.5-4.5) mmol/L Chloride (101-111) mmol/L Carbon Dioxide (21-32) mmol/L Anion Gap (6-13) BUN (6-20) mg/dL Creatinine (0.6-1.3) mg/dL Estimated GFR (MDRD) (>89) Glucose (74-104) mg/dL Lactic Acid (0.5-2.2) mmol/L Calcium (8.5-10.3) mg/dL Phosphorus (2.5-5.0) mg/dL Magnesium (1.7-2.3) mg/dL Total Bilirubin (0.2-1.0) mg/dL AST (10-42) IU/L ALT (10-60) IU/L Alkaline Phosphatase (42-121) IU/L Total Creatine Kinase (30-223) IU/L Total Protein (6.4-8.9) g/dL Albumin (3.2-5.5) g/dL Globulin (2.1-4.2) g/dL Albumin/Globulin Ratio (1.0-2.2) Urine Color Urine Clarity (CLEAR) Urine pH (5.0-7.5) PH Ur Specific Pavo (1.002-1.030) Urine Protein (NEGATIVE) mg/dL Urine Glucose (UA) (NEGATIVE) mg/dL Urine Ketones (NEGATIVE) mg/dL Urine Occult Blood (NEGATIVE) Urine Nitrite (NEGATIVE) Urine Bilirubin (NEGATIVE) Urine Urobilinogen (NORMAL) E.U./dL Ur Leukocyte Esterase (NEGATIVE) Urine RBC (0-5) /HPF Urine WBC (0-3) /HPF Ur Squamous Epith Cells (<= Few) Urine Bacteria (None Seen) /HPF Ur Microscopic Review Urine Culture Comments Nasal Screen MRSA (PCR) (NEGATIVE) Urine Opiates Screen (NEGATIVE) Ur Buprenorphine Scrn (NEGATIVE) Ur Oxycodone Screen (NEGATIVE) Urine Methadone Screen (NEGATIVE) Urine Fentanyl Screen (NEGATIVE) Ur Barbiturates Screen (NEGATIVE) Ur Tricyclics Screen (NEGATIVE) Ur Phencyclidine Scrn (NEGATIVE) Ur Amphetamine Screen (NEGATIVE) U Methamphetamines Scrn (NEGATIVE) U Benzodiazepines Scrn (NEGATIVE) Urine Cocaine Screen (NEGATIVE) U Cannabinoids Screen (NEGATIVE) Ur Drug Screen Comment Assessment/Plan Problem List (1) Delirium tremens: Impression: Intubated in the emergency department. This was of difficult intubation patient had very anterior airway. He was intubated for airway protection in the setting of DTs with active tremors and hallucinations, as well as seizure. He had a CT of the head which was negative. There is no documented aspiration event, however this patient has declined over the course of the day. In the early afternoon his vent settings were decreased. He was passing a breathing trial and his FiO2 was down to 40% and his settings were minimal. Hygiene was then performed by nursing at which point he became hypoxic and required increased vent settings with increased oxygenation and more support. We obtained a chest x-ray which does show a pattern consistent with aspiration. On exam he has rhonchi bilaterally. He has been febrile through the day and therefore I have started him on broad-spectrum antibiotics although I believe his source is an aspiration pneumonia. He is currently on vancomycin and Unasyn, we will continue to monitor his body temperature and repeat a CBC in the morning. We are treating his DTs with Precedex. He is opening his eyes to voice and following commands. He does not appear uncomfortable this appears to be adequate sedation on the ventilator. I have been at the bedside several times throughout the day. I am renewing his restraint orders this evening to protect the ET tube (2) Fever: Impression: Selected Entries 04/17/25 06:00 04/17/25 07:00 04/17/25 08:00 Temperature 38.0 C H 38.2 C H 38.7 C H 04/17/25 09:00 04/17/25 10:00 04/17/25 11:00 Temperature 39.6 C H 39.6 C H 39.5 C H Possibly secondary to aspiration. Chest x-ray shows pattern consistent with aspiration pneumonia. The ET tube is in good position. His lactate is negative at 1.5. He has an elevated CK at 2569. He has concentrated urine and his kidneys are functioning normally. (3) Dehydration: Impression: He has increased metabolic needs right now with his fever. He has relative hypotension and tachycardia. He has low urine output and his urine appears very concentrated. I am giving him a 1 L bolus of lactated Ringer's. I would like to see his urine output go up his tachycardia improved and his blood pressure improved prior to extubation. Throughout the day, his status has changed with increased oxygen needs, and fever. 04/17/25 08:00 04/17/25 09:00 04/17/25 10:00 Pulse Rate Pulse Rate [Monitoring electrodes] 120 H 134 H 126 H Blood Pressure [Right Brachial artery] 101/70 107/73 04/17/25 10:12 04/17/25 11:00 04/17/25 12:00 Pulse Rate 125 H Pulse Rate [Monitoring electrodes] 122 H 127 H Blood Pressure [Right Brachial artery] 111/70 109/68 This patient's diagnosis and treatment plan was discussed this AM with attending physician as a part of multi disciplinary rounding meeting. I have spent 55 minutes in the care of this patient today. This includes time [id number], review and ordering of diagnostic imaging and laboratory studies. Monitoring the patient's signs symptoms, evaluation of medication effectiveness and patient's response to treatment.
[2025-04-17] MEDS: DEXMEDETOMIDINE 400 MCG/100 ML 100 ML IV SCH (12:27)
[2025-04-17] MEDS: LACTATED RINGERS 1,000 ML IV ONE (12:27)
[2025-04-17] MEDS: IBUPROFEN 400 MG TABLET PO PRN (14:17)
--- NOTE | 2025-04-17 16:04 | XRAY Report ---
PROCEDURE: XR Chest 1V INDICATIONS: intubated w fever, alcohol withdrawal TECHNIQUE: One view of the chest was acquired. COMPARISON: None. FINDINGS: Surgical changes and devices: Gastric tube tip and side-port project over the stomach. Endotracheal tube tip projects 7.3 cm above the krish. Lungs and pleura: Right perihilar opacities. Diffuse bronchial thickening. Mediastinum: Mediastinal contours appear normal. Heart size is normal. Bones and chest wall: No suspicious bony lesions. Overlying soft tissues appear unremarkable. IMPRESSION: Endotracheal tube tip projects 7.3 cm above the krish. Recommend advancement by 3 cm. Gastric tube tip and side-port project over the stomach. Right perihilar opacities and diffuse bronchial thickening, suggestive of bronchitis or aspiration. Reviewed by: Dex Larry MD on 04/17/2025 4:02 PM PDT Approved by: Dex Larry MD on 04/17/2025 4:02 PM PDT Station ID: [id number]
--- NOTE | 2025-04-17 16:20 | PHARMACY PROGRESS NOTE ---
Vancomycin Therapy Monitoring Patient Information Vancomycin Pt Height (inches): 67 Vancomycin Patient Weight (kg): 115 Vanco Rx Serum Creatinine (mg/dL): 0.6 Vancomycin Therapy BUN (mg/dL): 7 Vancomycin Therapy Calculated Creatinine Cl (ml/min): 248 Concurrent Antibiotics: UNASYN Vancomycin Therapy Goals Treatment Indication: SEPSIS Vancomycin Target Range: Vancomycin AUC Target Range 400-600 mcg*h/ml Assessment of Current Therapy Vancomycin Loading Dose (GM, if applicable): 2G Current Vancomycin Maintenance Regimen (if applicable): 1.75G Q12H Vancomycin Current Regimen: Subtherapeutic Levels Estimated Cmax (Peak, mcg/ml): 25.7 Estimated Cmin (Trough, mcg/ml): 12.9 Estimated AUC (mcg*hr/ml): 449 Plan: Pharmacy recommendation: Continue current regimen
--- NOTE | 2025-04-17 16:38 | PHARMACY PROGRESS NOTE ---
Best Possible Medication History Admit Date and Time: 04/16/25 2313 Home Medications Medication Instructions Recorded Confirmed Type clonidine HCl 0.1 mg tablet 0.1 mg PO Q8H 04/17/25 History gabapentin 300 mg capsule 300 mg PO DAILY 04/17/25 History hydroxyzine pamoate 25 mg capsule 50 mg PO Q8H PRN anx iety 04/17/25 04/17/25 History (Vistaril) ondansetron HCl 4 mg tablet 4 mg PO Q8H 04/17/2504/17 History trazodone 50 mg tablet 50 mg PO HS 04/17/25 5 History Processed by: Pharmacy Medications reviewed in ED?: Yes Medication History completed: Yes Patient Interview: Pt unable to participate Secondary Source(s): Prescription bottles [facility] Statement: ALL MEDICATIONS ARE FROM [facility] PACKS THAT CAME WITH PT TO HOSPITAL. As the person ultimately responsible for medication therapy, providers are able to order a medication from an existing home medication list in [facility] via the "Reconcile Routine" prior to Confirmation of that medication by naval surface fire support planner. Such practice is discouraged except when the physician, in their clinical judgment, deems that a medical need exists for a medication without regard to previous use.
[2025-04-17] MEDS ORDERED: SODIUM CHLORIDE 0.9% MINIBAG 100 ML IV ONE (17:24)
[2025-04-17] MEDS: AMPICILLIN/SULBACTAM 1.5 GM in SODIUM CHLORIDE 0.9% MINIBAG 100 ML IV SCH (17:31)
[2025-04-17] MEDS: VANCOMYCIN INJ 2 GM in SODIUM CHLORIDE 0.9% 500 ML IV ONE (18:05)
--- NOTE | 2025-04-17 22:17 | XRAY Report ---
PROCEDURE: XR Chest 1V INDICATIONS: OG tube was removed then replaced TECHNIQUE: One view of the chest was acquired. COMPARISON: Earlier study from the same day.. FINDINGS: Surgical changes and devices: ET tube tip is approximately 4.4 cm above the krish. OG tube tip is below the lower edge of this study.. Lungs and pleura: Suggestion of small right pleural effusion with blunting of right costophrenic angle. Ill-defined opacities in right lower lung field is also seen. No pneumothorax. Mediastinum: Mediastinal contours appear normal. Heart size is enlarged. Bones and chest wall: No suspicious bony lesions. Overlying soft tissues appear unremarkable. IMPRESSION: OG tube tip is below the lower edge of this study and is in the expected location of stomach lumen. ET tube position as above. Suggestion of small right pleural effusion and right lower lobe infiltrate versus atelectasis. No pneumothorax. Reviewed by: Almas Seals MD on 04/17/2025 10:15 PM PDT Approved by: Almas Seals MD on 04/17/2025 10:15 PM PDT Station ID: [id number]
--- NOTE | 2025-04-18 00:05 | PROVIDER PROGRESS NOTE ---
Private Equity Analyst Note Private Equity Analyst Note Private Equity Analyst Note: notified by nurse of the following :"pt admitted for ETOH, delirium tremens, currently on vent pt acutely agitated/very restless. currently titrating up precedex.. Can we have PRN for acute agitation? thanks" per nurse he is currently maxed on precedex, plan was to extubate,but he was too altered and agitated. will order for prn versed pushes 2mg q4h for agitation and ventilator synchronization.will aim to avoid oversedation,but provide comfort while he remains intubated.
[2025-04-18] MEDS: MIDAZOLAM 2 MG/2 ML VIAL IVP PRN ×2 (03:53→05:06)
[2025-04-18 04:37] LABS: HCT - HEMATOCRIT 39.4 % (42.0-52.0); HGB - HEMOGLOBIN 13.0 g/dL (14.0-18.0); MEAN PLATELET VOLUME 11.5 fL (7.4-11.4); NRBC ABSOLUTE COUNT (AUTO) 0.00 x10^3/uL; NUCLEATED RED BLOOD CELLS AUTO 0.0 /100WBC; PLT - PLATELET COUNT 88 10^3/uL (130-450); RED CELL DISTRIBUTION WIDTH 14.6 % (12.0-15.0)
[2025-04-18 04:39] LABS: VBG PH 7.403 (7.31-7.41)
[2025-04-18 04:55] LABS: BUN - BLOOD UREA NITROGEN 13.0 mg/dL (6-20); CARBON DIOXIDE - CO2 23.0 mmol/L (21-32); CREATININE 0.6 mg/dL (0.6-1.3); GFR - MDRD 144.0 (>89); PHOSPHORUS 3.2 mg/dL (2.5-5.0)
[2025-04-18 04:56] LABS: SLIDE REVIEW? Indicated
[2025-04-18 05:11] LABS: PLATELET ESTIMATE, MANUAL DECREASED (<130,000) (NORMAL); PLATELET MORPHOLOGY 1+ GIANT PLATELETS (NORMAL); RBC MORPHOLOGY (MULTIPLE) 2+ MACROCYTOSIS (NORMAL)
[2025-04-18 06:05] LABS: ABG BASE EXCESS -3.5 mmol/L (-2.0-3.0); ABG HCO3 21.8 mmol/L (22.0-26.0); ABG OXYGEN SATURATION 99 % (95-98); ABG PCO2 36 mmHg (34-45); ABG PH 7.38 (7.35-7.45); ABG PO2 115 mmHg (83-108); ABG TCO2 22.9 mmol/L (21.0-29.0)
[2025-04-18 06:06] LABS: ABG FRACTION OF INSPIRED O2 45.00; ABG MODE OF VENTILATION ASSIST/CONTROL
[2025-04-18] MEDS: VANCOMYCIN INJ 1.75 GM in SODIUM CHLORIDE 0.9% 500 ML IV SCH (06:26)
[2025-04-18] MEDS: CALCIUM GLUCONATE IN NS 0.9% 2,000 MG/100 ML BAG IV ONE (06:31)
[2025-04-18] MEDS: MAGNESIUM SULFATE 1 GM in SODIUM CHLORIDE 0.9% 50 ML IV ONE ×2 (06:58→07:55)
--- NOTE | 2025-04-18 15:57 | PROVIDER PROGRESS NOTE ---
Subjective Prog Note Date Prog Note Date: 04/18/25 Subjective Subjective: He is extubated and oriented today. He denies hallucinations, and recognizes that he is very sleepy. Falls sleep during my interview with him. He has weaned to room air over the course of the day and is getting up to the chair this evening. Current Medications Current Medications Current Medications: Current Medications Generic Name Dose Route Start Last Admin Trade Name Freq PRN Reason Stop Dose Admin Acetaminophen 650 mg 04/16/25 23:33 Acetaminophen 325 Mg Tablet PO Q4HR PRN Pain 1 to 4, or Fever Chlordiazepoxide HCl 50 mg 04/17/25 12:00 04/18/25 12:29 Chlordiazepoxide 25 Mg Capsule PO 50 mg Q6HR MANPREET Administration Enoxaparin Sodium 40 mg 04/17/25 09:00 04/18/25 09:25 Enoxaparin 40 Mg/0.4 Ml Syringe SUBQ Not Given DAILY MANPREET Famotidine 20 mg 04/17/25 09:00 04/18/25 09:25 Famotidine 20 Mg/2 Ml Vial IVP 20 mg BID MANPREET Administration Dexmedetomidine/Sodium Chloride 100 mls @ 5.75 mls/hr 04/17/25 12:00 04/18/25 14:00 Precedex Premix IV 0.2 mcg/kg/hr .[id number] MANPREET 5.75 mls/hr Protocol Titration 0.2 MCG/KG/HR Ampicillin Sodium/Sulbactam 100 mls @ 200 mls/hr 04/17/25 18:00 04/18/25 13:02 Sodium 1.5 gm/ Sodium Chloride IV Infused Q6HR MANPREET Infusion Vancomycin HCl 1.75 gm/ Sodium 500 mls @ 250 mls/hr 04/18/25 06:00 04/18/25 08:30 Chloride IV Infused Q12H MANPREET Infusion Ibuprofen 400 mg 04/17/25 12:36 04/18/25 03:39 Ibuprofen 400 Mg Tablet PO 400 mg Q6HR PRN Administration temp >38.5 Lorazepam 2 - 20 mg 04/18/25 15:47 Lorazepam 2 Mg/Ml Vial IVP Q15M PRN RASS > 0 Protocol Nicotine 1 patch 04/19/25 09:00 Nicotine 21 Mg Patch TOP DAILY MANPREET Polyethylene Glycol 17 gm 04/19/25 09:00 Polyethylene Glycol 3350 17 Gm Packet PO DAILY MANPREET Multivit/Folic Acid/Iron 1 tab 04/19/25 09:00 Vitamin Tablet PO DAILY [facility] Sodium Chloride 10 ml 04/17/25 01:00 04/18/25 09:26 Sodium Chloride Flush 0.9% 10 Ml Syringe IVP 10 ml 0100,0900,1700 MANPREET Administration Sodium Chloride 10 ml 04/16/25 23:33 04/17/25 06:00 Sodium Chloride Flush 0.9% 10 Ml Syringe IVP 10 ml PRN PRN Administration NEEDED PER PROVIDER ORDERS Thiamine HCl 100 mg 04/19/25 09:00 Thiamine 100 Mg Tablet PO DAILY [facility] Objective Vital Signs/Intake & Output Reviewed Vital Signs: Yes Vital Signs: Vital Signs x48h Temp Pulse Resp BP Pulse Ox O2 Flow Rate 04/18/25 15:00 37.6 C 86 18 140/79 H 93 04/18/25 14:00 82 19 139/101 H 96 2 04/18/25 13:00 37.0 C 82 18 140/86 H 95 2 04/18/25 12:00 37.3 C 78 21 148/88 H 92 2 04/18/25 11:31 37.5 C 75 16 134/79 H 99 4 04/18/25 11:00 37.6 C 75 19 137/79 H 99 4 04/18/25 10:00 37.8 C 77 19 140/89 H 99 4 04/18/25 09:45 37.8 C 79 20 147/91 H 98 4 04/18/25 09:30 37.8 C 80 12 151/85 H 99 4 04/18/25 09:15 37.8 C 79 18 160/91 H 98 4 04/18/25 09:00 37.8 C 79 18 162/93 H 97 4 04/18/25 09:00 4 04/18/25 09:00 37.8 C 79 18 162/93 H 97 4 04/18/25 08:00 37.9 C 84 19 163/98 H 97 Intake & Output: Intake & Output 04/15/25 04/16/25 04/17/25 04/18/25 23:59 23:59 23:59 23:59 Intake Total 1080 / 1080 5152 / 5152 4670 / 4670 Output Total 2290 / 2290 740 / 740 Balance 1080 / 1080 2862 / 2862 3930 / 3930 Weight (kg) 115.6 kg 115 kg 115 kg Objective General Appearance: positive Other (intubated, febrile) Eyes Bilateral: positive Normal inspection ENT: positive ENT inspection nml Neck: positive Nml inspection Respiratory: positive Chest non-tender, No respiratory distress and Rhonchi (throughout) Cardiovascular: positive Tachycardia (sinus tachycardia) Abdomen: positive Non-tender and Other Skin: positive Color nml Extremities: positive Non-tender and No pedal edema Neurologic/Psychiatric: positive Oriented x3 and Other ( ) Lab Results 04/18/25 04:20 04/18/25 16:05 Other Labs: Lab Results x24hrs 04/18/25 04/18/25 Range/Units 05:55 04:20 WBC 5.3 (4.8-10.8) x10^3/uL RBC 3.30 L (4.70-6.10) 10^6/uL Hgb 13.0 L (14.0-18.0) g/dL Hct 39.4 L (42.0-52.0) % MCV 119.4 H (80.0-94.0) fL MCH 39.4 H (27.0-31.0) pg MCHC 33.0 (32.0-36.0) g/dL RDW 14.6 (12.0-15.0) % Plt Count 88 L (130-450) 10^3/uL MPV 11.5 H (7.4-11.4) fL Neut # (Auto) 3.6 (1.5-6.6) 10^3/uL Lymph # (Auto) 1.1 L (1.5-3.5) 10^3/uL [place] # (Auto) 0.4 (0.0-1.0) 10^3/uL Eos # (Auto) 0.1 (0.0-0.7) 10^3/uL Baso # (Auto) 0.0 (0.0-0.1) 10^3/uL Absolute Nucleated RBC 0.00 x10^3/uL Nucleated RBC % 0.0 /100WBC Manual Slide Review Indicated Platelet Estimate DECREASED (<130,000) (NORMAL) Platelet Morphology 1+ GIANT PLATELETS (NORMAL) RBC Morph Micro Appear 2+ MACROCYTOSIS (NORMAL) Bld Gas Analysis Time 0559 Sample Site RIGHT RADIAL ABG pH 7.38 (7.35-7.45) ABG pCO2 36 (34-45) mmHg ABG pO2 115 H (83-108) mmHg ABG HCO3 21.8 L (22.0-26.0) mmol/L ABG Total CO2 22.9 (21.0-29.0) mmol/L ABG O2 Saturation 99 H (95-98) % ABG Base Excess -3.5 L (-2.0-3.0) mmol/L Pierce Test POSITIVE VBG pH 7.403 (7.31-7.41) Ionized Calcium 1.12 (1.09-1.30) mmol/L O2 Delivery Device VENTILATOR Vent Mode ASSIST/CONTROL FiO2 45.00 Tidal Volume 500 mL Sodium 138 (135-145) mmol/L Potassium 3.9 (3.5-4.5) mmol/L Chloride 107 (101-111) mmol/L Carbon Dioxide 23 (21-32) mmol/L Anion Gap 8.0 (6-13) BUN 13 (6-20) mg/dL Creatinine 0.6 (0.6-1.3) mg/dL Estimated GFR (MDRD) 144 (>89) Glucose 93 (74-104) mg/dL Calcium 8.2 L (8.5-10.3) mg/dL Phosphorus 3.2 (2.5-5.0) mg/dL Magnesium 1.7 (1.7-2.3) mg/dL Assessment/Plan Problem List (1) Delirium tremens: Impression: Last drink 04/14 at about 2200. Intubated in the emergency department. This was of difficult intubation patient had very anterior airway. He was intubated for airway protection in the setting of DTs with active tremors and hallucinations, as well as seizure. He had a CT of the head which was negative. There is no documented aspiration event, however this patient has declined over the course of hospital day 2 with fever and a period of hypoxia. Chest XR had a pattern c/w aspiration. On exam he has rhonchi bilaterally. he has defervesced on broad spectrum abx. . We are treating his DTs with Precedex. Post extubation we are weaning the precedex. down to 0.2 this afternoon. he is on scheduled librium 50mg QID, and I am ordering symptom triggered IV Ativan this afternoon. I have started him on a diet and stopped his IVF. He should transfer out of the ICU tomorrow, dependent on his Ativan needs. (2) Aspiration into lower respiratory tract: Impression: He was febrile yesterday, and started on unasyn and vancomycin for presumed aspiration in the setting of DTs, seizure, and difficult intubation. He was able to extubate today despite the aspiration. post extubation he has been able to wean to room air. No fevers today, (3) Dehydration: Impression: improving. he is eating and drinking this evening. his vital signs have improved with resolution of his hypotension and tachycardia. he still has choluria looking at the urine in the vizcaino bag, but his flowsheet shows that he is positive 8.5L for this admission. He does not have pedal edema, but his extremities do appear slightly edematoous. I will allow him to autodiureese, unless he become short of breath or hyoxic. . (4) Nicotine addiction: Impression: admits to smoking 1/2 ppd. he is having nicotine cravings. I have ordered nicotine patch 21mg daily. This patient's diagnosis and treatment plan was discussed this AM with attending physician as a part of multi disciplinary rounding meeting. I have spent 52 minutes in the care of this patient today. This includes time [id number], review and ordering of diagnostic imaging and laboratory studies. Monitoring the patient's signs symptoms, evaluation of medication effectiveness and patient's response to treatment
[2025-04-18 16:33] LABS: ALT ALANINE AMINOTRANSFERASE 35.0 IU/L (10-60); AST ASPARTATE AMINOTRANSFERASE 133.0 IU/L (10-42); BUN - BLOOD UREA NITROGEN 12.0 mg/dL (6-20); CARBON DIOXIDE - CO2 23.0 mmol/L (21-32); CREATININE 0.6 mg/dL (0.6-1.3); GFR - MDRD 144.0 (>89)
[2025-04-18] MEDS: NICOTINE 21 MG PATCH TOP SCH (17:25)
[2025-04-18 19:44] LABS: ABG RESPIRATORY RATE 12 b/min
[2025-04-18] MEDS: LORazepam 2 MG/ML VIAL IVP PRN (20:56)
[2025-04-19 04:43] LABS: HCT - HEMATOCRIT 35.5 % (42.0-52.0); HGB - HEMOGLOBIN 12.3 g/dL (14.0-18.0); MEAN PLATELET VOLUME 11.3 fL (7.4-11.4); NRBC ABSOLUTE COUNT (AUTO) 0.00 x10^3/uL; NUCLEATED RED BLOOD CELLS AUTO 0.0 /100WBC; PLT - PLATELET COUNT 99 10^3/uL (130-450); RED CELL DISTRIBUTION WIDTH 13.7 % (12.0-15.0)
[2025-04-19 04:50] LABS: SLIDE REVIEW? Indicated
[2025-04-19 05:01] LABS: BUN - BLOOD UREA NITROGEN 9.0 mg/dL (6-20); CARBON DIOXIDE - CO2 24.0 mmol/L (21-32); CREATININE 0.5 mg/dL (0.6-1.3); GFR - MDRD 178.0 (>89); PHOSPHORUS 2.1 mg/dL (2.5-5.0)
[2025-04-19 06:03] LABS: VBG PH 7.476 (7.31-7.41)
[2025-04-19] MEDS: ACETAMINOPHEN 325 MG TABLET PO PRN (06:06)
[2025-04-19 06:13] LABS: PLATELET ESTIMATE, MANUAL DECREASED (<130,000) (NORMAL); PLATELET MORPHOLOGY 1+ GIANT PLATELETS (NORMAL); RBC MORPHOLOGY (MULTIPLE) 2+ MACROCYTOSIS (NORMAL)
[2025-04-19] MEDS ORDERED: NICOTINE 21 MG PATCH TOP SCH (09:00)
[2025-04-19] MEDS: PRENATAL VITAMIN TABLET PO SCH (09:21)
[2025-04-19] MEDS: NEUTRA-PHOS 250 MG TABLET PO SCH (09:21)
[2025-04-19] MEDS: THIAMINE 100 MG TABLET PO SCH (09:21)
[2025-04-19] MEDS: MAGNESIUM OXIDE 400 MG TABLET PO ONE ×2 (09:27→20:14)
[2025-04-19] MEDS ORDERED: SODIUM CHLORIDE 0.9% MINIBAG 100 ML IV ONE (13:08)
--- NOTE | 2025-04-19 13:12 | PROVIDER PROGRESS NOTE ---
Subjective Prog Note Date Prog Note Date: 04/19/25 Subjective Pt reports feeling: Improved Subjective: he is progressing. has been on and off supplemental oxygen. he is oriented, but weaker today. was not able to get out of bed with RNs, unsuccessful trip to the bathroom. congested cough while I am in the room. Current Medications Current Medications Current Medications: Current Medications Generic Name Dose Route Start Last Admin Trade Name Freq PRN Reason Stop Dose Admin Acetaminophen 650 mg 04/16/25 23:33 04/19/25 06:06 Acetaminophen 325 Mg Tablet PO 650 mg Q4HR PRN Administration Pain 1 to 4, or Fever Chlordiazepoxide HCl 50 mg 04/17/25 12:00 04/19/25 06:06 Chlordiazepoxide 25 Mg Capsule PO 50 mg Q6HR MANPREET Administration Diphenhydramine HCl 50 mg 04/18/25 23:57 04/19/25 02:16 Diphenhydramine 25 Mg Capsule PO 50 mg Q4HR PRN Administration Allergy Symptoms Enoxaparin Sodium 40 mg 04/17/25 09:00 04/19/25 09:22 Enoxaparin 40 Mg/0.4 Ml Syringe SUBQ Not Given DAILY MANPREET Famotidine 20 mg 04/17/25 09:00 04/19/25 09:21 Famotidine 20 Mg/2 Ml Vial IVP 20 mg BID MANPREET Administration Hydroxyzine Pamoate 50 mg 04/18/25 15:49 04/18/25 19:55 Hydroxyzine Pamoate 25 Mg Capsule PO 50 mg Q8H PRN Administration Anxiety Dexmedetomidine/Sodium Chloride 100 mls @ 5.75 mls/hr 04/17/25 12:00 04/18/25 17:30 Precedex Premix IV 0 mcg/kg/hr .[id number] MANPREET 0 mls/hr Protocol Titration 0.2 MCG/KG/HR Ampicillin Sodium/Sulbactam 100 mls @ 200 mls/hr 04/17/25 18:00 04/19/25 06:35 Sodium 1.5 gm/ Sodium Chloride IV Infused Q6HR MANPREET Infusion Ibuprofen 400 mg 04/17/25 12:36 04/18/25 03:39 Ibuprofen 400 Mg Tablet PO 400 mg Q6HR PRN Administration temp >38.5 Lorazepam 2 - 20 mg 04/18/25 15:47 04/19/25 10:32 Lorazepam 2 Mg/Ml Vial IVP 4 mg Q15M PRN Administration RASS > 0 Protocol Nicotine 1 patch 04/18/25 16:13 04/19/25 09:27 Nicotine 21 Mg Patch TOP 1 patch DAILY MANPREET Administration Polyethylene Glycol 17 gm 04/19/25 09:00 04/19/25 09:23 Polyethylene Glycol 3350 17 Gm Packet PO Not Given DAILY MANPREET Multivit/Folic Acid/Iron 1 tab 04/19/25 09:00 04/19/25 09:21 Vitamin Tablet PO 1 tab DAILY MANPREET Administration Sodium Chloride 10 ml 04/17/25 01:00 04/19/25 09:23 Sodium Chloride Flush 0.9% 10 Ml Syringe IVP 10 ml 0100,0900,1700 MANPREET Administration Sodium Chloride 10 ml 04/16/25 23:33 04/19/25 02:17 Sodium Chloride Flush 0.9% 10 Ml Syringe IVP 10 ml PRN PRN Administration NEEDED PER PROVIDER ORDERS Thiamine HCl 100 mg 04/19/25 09:00 04/19/25 09:21 Thiamine 100 Mg Tablet PO 100 mg DAILY MANPREET Administration Trazodone HCl 50 mg 04/18/25 21:00 04/18/25 20:32 Trazodone 50 Mg Tablet PO 50 mg HS MANPREET Administration Objective Vital Signs/Intake & Output Reviewed Vital Signs: Yes Vital Signs: Vital Signs x48h Temp Pulse Resp BP Pulse Ox O2 Flow Rate 04/19/25 12:00 37.0 C 100 20 107/79 93 04/19/25 11:00 96 29 H 136/86 H 96 2 04/19/25 10:18 2 04/19/25 10:00 100 26 H 157/79 H 95 2 04/19/25 09:00 110 H 27 H 142/90 H 97 2 04/19/25 08:00 37.4 C 112 H 24 128/60 93 2 04/19/25 07:00 130 H 30 H 157/93 H 94 2 04/19/25 06:00 112 H 25 H 154/94 H 93 2 04/19/25 05:57 2 Intake & Output: Intake & Output 04/16/25 04/17/25 04/18/25 04/19/25 23:59 23:59 23:59 23:59 Intake Total 1080 / 1080 5152 / 5152 6070 / 6070 820 / 820 Output Total 2290 / 2290 1015 / 1015 125 / 125 Balance 1080 / 1080 2862 / 2862 5055 / 5055 695 / 695 Weight (kg) 115.6 kg 115 kg 115 kg 120 kg Objective General Appearance: positive No acute distress and Alert Eyes Bilateral: positive Normal inspection ENT: positive ENT inspection nml Neck: positive Nml inspection Respiratory: positive Chest non-tender, No respiratory distress and Rhonchi (on the right side only now. ) Cardiovascular: positive Tachycardia (sinus tachycardia) Abdomen: positive Non-tender Skin: positive Color nml and Skin rash (erythema on the lower abdomen, mild macular rash) Extremities: positive Non-tender and No pedal edema Neurologic/Psychiatric: positive Other ( confused this evening. ) Lab Results 04/19/25 04:29 04/19/25 04:29 Other Labs: Lab Results x24hrs 04/19/25 04/18/25 04/18/25 Range/Units 04:29 16:05 05:55 WBC 5.6 (4.8-10.8) x10^3/uL RBC 3.13 L (4.70-6.10) 10^6/uL Hgb 12.3 L (14.0-18.0) g/dL Hct 35.5 L (42.0-52.0) % MCV 113.4 H (80.0-94.0) fL MCH 39.3 H (27.0-31.0) pg MCHC 34.6 (32.0-36.0) g/dL RDW 13.7 (12.0-15.0) % Plt Count 99 L (130-450) 10^3/uL MPV 11.3 (7.4-11.4) fL Neut # (Auto) 4.1 (1.5-6.6) 10^3/uL Lymph # (Auto) 0.8 L (1.5-3.5) 10^3/uL [place] # (Auto) 0.6 (0.0-1.0) 10^3/uL Eos # (Auto) 0.1 (0.0-0.7) 10^3/uL Baso # (Auto) 0.0 (0.0-0.1) 10^3/uL Absolute Nucleated RBC 0.00 x10^3/uL Nucleated RBC % 0.0 /100WBC Manual Slide Review Indicated Platelet Estimate DECREASED (<130,000) (NORMAL) Platelet Morphology 1+ GIANT PLATELETS (NORMAL) RBC Morph Micro Appear 2+ MACROCYTOSIS (NORMAL) VBG pH 7.476 H (7.31-7.41) Ionized Calcium 1.13 (1.09-1.30) mmol/L Respiration Rate 12 b/min Sodium 132 L 134 L (135-145) mmol/L Potassium 3.3 L 3.9 (3.5-4.5) mmol/L Chloride 101 104 (101-111) mmol/L Carbon Dioxide 24 23 (21-32) mmol/L Anion Gap 7.0 7.0 (6-13) BUN 9 12 (6-20) mg/dL Creatinine 0.5 L 0.6 (0.6-1.3) mg/dL Estimated GFR (MDRD) 178 144 (>89) Glucose 95 89 (74-104) mg/dL Calcium 8.5 8.6 (8.5-10.3) mg/dL Phosphorus 2.1 L (2.5-5.0) mg/dL Magnesium 1.6 L (1.7-2.3) mg/dL Total Bilirubin 2.4 H (0.2-1.0) mg/dL AST 133 H (10-42) IU/L ALT 35 (10-60) IU/L Alkaline Phosphatase 62 (42-121) IU/L Total Protein 5.7 L (6.4-8.9) g/dL Albumin 3.4 (3.2-5.5) g/dL Globulin 2.3 (2.1-4.2) g/dL Albumin/Globulin Ratio 1.5 (1.0-2.2) Assessment/Plan Problem List (1) Delirium tremens: Impression: Last drink 04/14 at about 2200. Intubated in the emergency department. This was a difficult intubation patient had very anterior airway. He was intubated for airway protection in the setting of DTs with active tremors and hallucinations, as well as seizure. He had a CT of the head which was negative. There is no documented aspiration event, however this patient has declined over the course of hospital day 2 with fever and a period of hypoxia. Chest XR had a pattern c/w aspiration. On exam his rhonchi have improved and are isolated to the right side. . he has defervesced on broad spectrum abx. He has had some hypoxia on and off, treated with supplemental oxygen. We are treating his DTs with Precedex. He weaned off precedex overnight, but this afternoon is requiring it again, with some acute agitation and tachypnea, tachycardia. he is on scheduled librium 50mg QID, continue w symptom triggered ativan I have started him on a diet and stopped his IVF. Still requiring ICU level of care with need for multiple sedatives (2) Aspiration into lower respiratory tract: Impression: He was febrile, and started on unasyn and vancomycin for presumed aspiration in the setting of DTs, seizure, and difficult intubation. He was able to extubate 04/18 despite the aspiration. post extubation he has been able to wean to room air- has gone on and off oxygen. has right side rhonchi on lung auscultation today. (3) Dehydration: Impression: improving. he is eating and drinking this evening. He does not have pedal edema, but his extremities do appear slightly edematoous. I will allow him to autodiurese (4) Nicotine addiction: Impression: admits to smoking 1/2 ppd. he is having nicotine cravings. I have ordered nicotine patch 21mg daily. This patient's diagnosis and treatment plan was discussed this AM with attending physician as a part of multi disciplinary rounding meeting. I have spent 55 minutes in the care of this patient today. This includes time [id number], review and ordering of diagnostic imaging and laboratory studies. Monitoring the patient's signs symptoms, evaluation of medication effectiveness and patient's response to treatment
[2025-04-19] MEDS ORDERED: MAGNESIUM OXIDE 400 MG TABLET PO SCH (20:00)
[2025-04-19] MEDS: POTASSIUM CHLORIDE 20 MEQ TABLET PO SCH (20:15)
[2025-04-19] MEDS: MAGNESIUM SULFATE 2 GRAM 2 GM/50 ML BAG IV ONE (21:31)
[2025-04-19] MEDS: POTASSIUM CHLOR 10 MEQ/100 ML 10 MEQ/100 ML BAG IV SCH (21:31)
[2025-04-19] MEDS: COD LIVER OIL/ZINC OXIDE 113 GM TUBE TOP PRN (22:41)
[2025-04-20 04:46] LABS: HCT - HEMATOCRIT 36.5 % (42.0-52.0); HGB - HEMOGLOBIN 12.4 g/dL (14.0-18.0); MEAN PLATELET VOLUME 10.9 fL (7.4-11.4); NRBC ABSOLUTE COUNT (AUTO) 0.00 x10^3/uL; NUCLEATED RED BLOOD CELLS AUTO 0.0 /100WBC; PLT - PLATELET COUNT 125 10^3/uL (130-450); RED CELL DISTRIBUTION WIDTH 13.3 % (12.0-15.0)
[2025-04-20 04:52] LABS: VBG PH 7.445 (7.31-7.41)
[2025-04-20 05:07] LABS: BUN - BLOOD UREA NITROGEN 5.0 mg/dL (6-20); CARBON DIOXIDE - CO2 27.0 mmol/L (21-32); CREATININE 0.5 mg/dL (0.6-1.3); GFR - MDRD 178.0 (>89)
[2025-04-20 05:16] LABS: SLIDE REVIEW? Indicated
[2025-04-20 05:58] LABS: PLATELET ESTIMATE, MANUAL DECREASED (<130,000) (NORMAL); PLATELET MORPHOLOGY 1+ GIANT PLATELETS (NORMAL)
[2025-04-20 05:59] LABS: RBC MORPHOLOGY (MULTIPLE) 2+ MACROCYTOSIS (NORMAL); WBC MORPHOLOGY (MULTIPLE) NORMAL APPEARANCE (NORMAL)
[2025-04-20] MEDS: POTASSIUM CHLOR 10 MEQ/100 ML 10 MEQ/100 ML BAG IV SCH ×2 (06:23→16:22)
[2025-04-20 06:57] LABS: PHOSPHORUS 3.7 mg/dL (2.5-5.0)
[2025-04-20] MEDS: MAGNESIUM SULFATE 2 GRAM 2 GM/50 ML BAG IV ONE (08:30)
--- NOTE | 2025-04-20 10:12 | XRAY Report ---
PROCEDURE: XR Chest 1V INDICATIONS: MIL[place] TECHNIQUE: One view of the chest was acquired. COMPARISON: None. FINDINGS: Surgical changes and devices: Extubation Lungs and pleura: No pleural effusions or pneumothorax. No consolidation. Scattered atelectasis and or infiltrate Mediastinum: Mediastinal contours appear normal. Heart size is normal. Bones and chest wall: No suspicious bony lesions. Overlying soft tissues appear unremarkable. IMPRESSION: Scattered atelectasis and or infiltrate, improved from the prior Reviewed by: Juan Burns MD on 04/20/2025 9:11 AM JOSE RAUL Approved by: Juan Burns MD on 04/20/2025 9:11 AM [facility] Station ID: [id number]
--- NOTE | 2025-04-20 14:38 | PROVIDER PROGRESS NOTE ---
Subjective Prog Note Date Prog Note Date: 04/20/25 Subjective Subjective: Sleeping and does not wake up to my voice. he is on 0.6 Precedex. is not needing supplemental oxygen, breathing about 30 times per minute. Was agitated earlier in the day and tachypenic. Therefore was restarted on sedatives. Current Medications Current Medications Current Medications: Current Medications Generic Name Dose Route Start Last Admin Trade Name Freq PRN Reason Stop Dose Admin Acetaminophen 650 mg 04/16/25 23:33 04/20/25 08:35 Acetaminophen 325 Mg Tablet PO 650 mg Q4HR PRN Administration Pain 1 to 4, or Fever Chlordiazepoxide HCl 50 mg 04/17/25 12:00 04/20/25 12:33 Chlordiazepoxide 25 Mg Capsule PO 50 mg Q6HR MANPREET Administration Diphenhydramine HCl 50 mg 04/18/25 23:57 04/19/25 02:16 Diphenhydramine 25 Mg Capsule PO 50 mg Q4HR PRN Administration Allergy Symptoms Enoxaparin Sodium 40 mg 04/17/25 09:00 04/20/25 08:35 Enoxaparin 40 Mg/0.4 Ml Syringe SUBQ 40 mg DAILY MANPREET Administration Famotidine 20 mg 04/17/25 09:00 04/20/25 08:35 Famotidine 20 Mg/2 Ml Vial IVP 20 mg BID MANPREET Administration Hydroxyzine Pamoate 50 mg 04/18/25 15:49 04/18/25 19:55 Hydroxyzine Pamoate 25 Mg Capsule PO 50 mg Q8H PRN Administration Anxiety Dexmedetomidine/Sodium Chloride 100 mls @ 5.75 mls/hr 04/17/25 12:00 04/20/25 12:57 Precedex Premix IV 0.6 mcg/kg/hr .[id number] MANPREET 17.25 mls/hr Protocol Administration 0.2 MCG/KG/HR Ampicillin Sodium/Sulbactam 100 mls @ 200 mls/hr 04/17/25 18:00 04/20/25 13:11 Sodium 1.5 gm/ Sodium Chloride IV Infused Q6HR MANPREET Infusion Ibuprofen 400 mg 04/17/25 12:36 04/18/25 03:39 Ibuprofen 400 Mg Tablet PO 400 mg Q6HR PRN Administration temp >38.5 Lorazepam 2 - 20 mg 04/18/25 15:47 04/19/25 17:41 Lorazepam 2 Mg/Ml Vial IVP 10 mg Q15M PRN Administration RASS > 0 Protocol Nicotine 1 patch 04/18/25 16:13 04/20/25 08:43 Nicotine 21 Mg Patch TOP 1 patch DAILY MANPREET Administration Polyethylene Glycol 17 gm 04/19/25 09:00 04/20/25 08:44 Polyethylene Glycol 3350 17 Gm Packet PO 17 gm DAILY MANPREET Administration Multivit/Folic Acid/Iron 1 tab 04/19/25 09:00 04/20/25 08:35 Vitamin Tablet PO 1 tab DAILY MANPREET Administration Sodium Chloride 10 ml 04/17/25 01:00 04/20/25 08:36 Sodium Chloride Flush 0.9% 10 Ml Syringe IVP 10 ml 0100,0900,1700 MANPREET Administration Sodium Chloride 10 ml 04/16/25 23:33 04/19/25 02:17 Sodium Chloride Flush 0.9% 10 Ml Syringe IVP 10 ml PRN PRN Administration NEEDED PER PROVIDER ORDERS Thiamine HCl 100 mg 04/19/25 09:00 04/20/25 08:35 Thiamine 100 Mg Tablet PO 100 mg DAILY MANPREET Administration Trazodone HCl 50 mg 04/18/25 21:00 04/19/25 20:58 Trazodone 50 Mg Tablet PO Not Given HS MANPREET Zinc Oxide 113 gm 04/19/25 20:16 04/20/25 06:35 Cod Liver Oil/Zinc Oxide 113 Gm Tube TOP 1 applic PRN PRN Administration Skin Care Objective Vital Signs/Intake & Output Reviewed Vital Signs: Yes Vital Signs: Vital Signs x48h Temp Pulse Resp BP Pulse Ox 04/20/25 13:00 78 31 H 143/90 H 94 04/20/25 12:00 37.6 C 78 28 H 143/84 H 93 04/20/25 11:00 84 16 126/76 96 04/20/25 10:00 78 33 H 108/56 L 91 L 04/20/25 09:00 78 38 H 99/60 90 L 04/20/25 08:00 38.3 C H 78 46 H 144/79 H 91 L 04/20/25 07:00 78 36 H 134/76 H 78 L Intake & Output: Intake & Output 04/17/25 04/18/25 04/19/25 04/20/25 23:59 23:59 23:59 23:59 Intake Total 5152 / 5152 6070 / 6070 1312 / 1312 1476 / 1476 Output Total 2290 / 2290 1015 / 1015 925 / 925 300 / 300 Balance 2862 / 2862 5055 / 5055 387 / 387 1176 / 1176 Weight (kg) 115 kg 115 kg 120 kg 112 kg Objective General Appearance: positive No acute distress and Other (sleeping, appears comfortable. ) Eyes Bilateral: positive Conjunctivae nml ENT: positive ENT inspection nml Neck: positive Nml inspection Respiratory: positive No respiratory distress and Rhonchi (occasional) Cardiovascular: positive Regular rate & rhythm Abdomen: positive No distention Skin: positive Color nml and Dry Extremities: positive No pedal edema Neurologic/Psychiatric: positive Other (sleeping on 0.6 precedex. ) Lab Results 04/20/25 04:26 04/20/25 15:05 Other Labs: Lab Results x24hrs 04/20/25 04/19/25 Range/Units 04:26 18:29 WBC 5.1 (4.8-10.8) x10^3/uL RBC 3.21 L (4.70-6.10) 10^6/uL Hgb 12.4 L (14.0-18.0) g/dL Hct 36.5 L (42.0-52.0) % MCV 113.7 H (80.0-94.0) fL MCH 38.6 H (27.0-31.0) pg MCHC 34.0 (32.0-36.0) g/dL RDW 13.3 (12.0-15.0) % Plt Count 125 L (130-450) 10^3/uL MPV 10.9 (7.4-11.4) fL Neut # (Auto) 3.3 (1.5-6.6) 10^3/uL Lymph # (Auto) 0.9 L (1.5-3.5) 10^3/uL [place] # (Auto) 0.7 (0.0-1.0) 10^3/uL Eos # (Auto) 0.1 (0.0-0.7) 10^3/uL Baso # (Auto) 0.0 (0.0-0.1) 10^3/uL Absolute Nucleated RBC 0.00 x10^3/uL Nucleated RBC % 0.0 /100WBC Manual Slide Review Indicated WBC Morphology NORMAL APPEARANCE (NORMAL) Platelet Estimate DECREASED (<130,000) (NORMAL) Platelet Morphology 1+ GIANT PLATELETS (NORMAL) RBC Morph Micro Appear 2+ MACROCYTOSIS (NORMAL) VBG pH 7.445 H (7.31-7.41) Ionized Calcium 1.21 (1.09-1.30) mmol/L Sodium 139 (135-145) mmol/L Potassium 3.4 L 3.4 L (3.5-4.5) mmol/L Chloride 106 (101-111) mmol/L Carbon Dioxide 27 (21-32) mmol/L Anion Gap 6.0 (6-13) BUN 5 L (6-20) mg/dL Creatinine 0.5 L (0.6-1.3) mg/dL Estimated GFR (MDRD) 178 (>89) Glucose 116 H (74-104) mg/dL Calcium 8.7 (8.5-10.3) mg/dL Phosphorus 3.7 (2.5-5.0) mg/dL Magnesium 1.8 1.6 L (1.7-2.3) mg/dL Assessment/Plan Problem List (1) Delirium tremens: Impression: Last drink 04/14 at about 2200. Intubated in the emergency department. This was a difficult intubation patient had very anterior airway. He was intubated for airway protection in the setting of DTs with active tremors and hallucinations, as well as seizure. He had a CT of the head which was negative. There is no documented aspiration event, however this patient has declined over the course of hospital day 2 with fever and a period of hypoxia. Chest XR had a pattern c/w aspiration. On exam his rhonchi have improved and are isolated to the right side. . he has defervesced on broad spectrum abx. He has had some hypoxia on and off, treated with supplemental oxygen. We are treating his DTs with Precedex. he is back on precedex for agitation. he is on scheduled librium 50mg QID,but not swallowing this afternoon, looking at MAR, has not gotten last 3 doses. He has not been able to get out of bed for 2 days now. I have asked for PT evaluation tomorrow. I have stopped Precedex, since he is now about 6 days off his last drink. If I can get him to be awake enough to swallow, he can resume the librium ( i observed RN giving noon dose at about 3pm with applesauce), use symptom triggered Ativan, then also vistaril as an adjunct for anxiety. He missed midnight and 6am librium (?documented physiologically contraindicated- likely not swallowing well)- then mid morning had this agitation with tachypnea. Still requiring ICU level of care with need for multiple sedatives, high needs for RN care. (2) Aspiration into lower respiratory tract: Impression: He was febrile, and started on unasyn and vancomycin for presumed aspiration in the setting of DTs, seizure, and difficult intubation. He was able to extubate 04/18 despite the aspiration- he has been on this for about 48 hours. post extubation he has been able to wean to room air- has gone on and off oxygen, but completely off for about 24 hours. has right side rhonchi on lung auscultation today. His lung exam is stable compared to yesterday. he has some tachypnea. (3) Dehydration: Impression: resolved, but not eating and drinking today. He does not have pedal edema, but his extremities do appear slightly edematoous. I will allow him to autodiurese (4) Urinary retention: Impression: voided this AM around the time that he became agitated, then later this afternoon was straight cathed for 750cc after a positive bladder scan. Continue to follow bladder protocol. (5) Nicotine addiction: Impression: admits to smoking 1/2 ppd. he is having nicotine cravings. I have ordered nicotine patch 21mg daily. This patient's diagnosis and treatment plan was discussed this AM with attending physician as a part of multi disciplinary rounding meeting. I have spent 52 minutes in the care of this patient today. This includes time [id number], review and ordering of diagnostic imaging and laboratory studies. Monitoring the patient's signs symptoms, evaluation of medication effectiveness and patient's response to treatment
[2025-04-21 04:41] LABS: HCT - HEMATOCRIT 35.1 % (42.0-52.0); HGB - HEMOGLOBIN 11.8 g/dL (14.0-18.0); MEAN PLATELET VOLUME 10.7 fL (7.4-11.4); NRBC ABSOLUTE COUNT (AUTO) 0.00 x10^3/uL; NUCLEATED RED BLOOD CELLS AUTO 0.0 /100WBC; PLT - PLATELET COUNT 145 10^3/uL (130-450); RED CELL DISTRIBUTION WIDTH 13.5 % (12.0-15.0)
[2025-04-21 04:48] LABS: SLIDE REVIEW? Indicated
[2025-04-21 04:51] LABS: VBG PH 7.508 (7.31-7.41)
[2025-04-21 04:57] LABS: BUN - BLOOD UREA NITROGEN 7.0 mg/dL (6-20); CARBON DIOXIDE - CO2 26.0 mmol/L (21-32); CREATININE 0.5 mg/dL (0.6-1.3); GFR - MDRD 178.0 (>89); PHOSPHORUS 3.0 mg/dL (2.5-5.0)
[2025-04-21 05:23] LABS: PLATELET ESTIMATE, MANUAL NORMAL (130-450,000) (NORMAL); PLATELET MORPHOLOGY NORMAL APPEARANCE (NORMAL); RBC MORPHOLOGY (MULTIPLE) 2+ MACROCYTOSIS (NORMAL); WBC MORPHOLOGY (MULTIPLE) NORMAL APPEARANCE (NORMAL)
[2025-04-21] MEDS: POTASSIUM CHLORIDE 20 MEQ TABLET PO SCH (05:46)
[2025-04-21] MEDS: MAGNESIUM OXIDE 400 MG TABLET PO ONE (05:46)
[2025-04-21] MEDS: TAMSULOSIN 0.4 MG CAPSULE PO SCH (10:11)
--- NOTE | 2025-04-21 13:22 | PT Plan of Care ---
PT Inpatient Plan of Care DIAGNOSIS Diagnosis: delirium tremens Diagnosis: ETOH withdrawal Referring Provider: Maria Del Rosario Hooker Patient Status: Inpatient CHIEF COMPLAINT Chief Complaint: confusion, weakness Onset of Chief Complaint: CERTIFICATION AND SELECTION SPECIALIST on 04/16/25 BALANCE/FUNCTIONAL RESULTS Sitting Balance: Poor Standing Balance: Unable Tinetti Composite Score (Balance + Gait): 0 Tinetti Assessment Interpretation: High Fall Risk ASSESSMENT Assessment: The pt is a 45 y/o M who arrived to the ED from [facility] on 04/16/25 due to issues related to ETOH withdrawals requiring medical attention, he was intubated and hospitalized with DT's. The pt has a known R LE injury that has caused a limp for many years, please see chart for complete medical hx. The pt was received resting comfortably supine in bed while watching. He presented to day with significant confusion (oriented only to self); gross weakness of core, B UE's, and B LE's musculature; loss of midline orientation (lists to R and maintains head in about 30 degrees of R sidebending); poor coordination grossly; poor command following with more than simple commands; poor activity tolerance; and limited insight to deficits which is below his baseline level of Ind with all ADL's and ambulating primarily without an AD, occasionally requiring FWW. RN was present and assisting throughout due to the pt's functional limitations. At this time recommend continued skilled PT intervention while in the acute setting and DC to SNF for further rehab once pt medically stable. This plan was discussed with the pt and he was in agreement with this. At the end of the session the pt was sitting up in a chair with call light in reach, chair alarm in place and on, and all needs met while his RN was setting up his lunch tray and PA was coming in to assess pt. RN and PA updated on pt's status and DC rec. GOALS Improve supine to sit to:: Minimal Assist Improve sit to stand to:: Minimal Assist Improve pivot transfer ability to:: Minimal Assist Improve sit to supine to:: Minimal Assist Improve gait ability to:: Min A Advance Assistive Device to:: Front Wheeled Walker Increase distance walked to (in feet):: 25 Improve Sitting Balance to:: Fair PLAN Frequency: 1-2x/day Duration: Until discharge DISCHARGE RECOMMENDATIONS Discharge Location: [facility] Facility Support/Services Needed: With assist Other Discharge Equipment: assessment ongoing Transport Needs at Discharge: [place]
--- NOTE | 2025-04-21 14:31 | PROVIDER PROGRESS NOTE ---
Subjective Prog Note Date Prog Note Date: 04/21/25 Subjective Subjective: Seen this AM as he was doing sit to stand lift to commode then again just after PT evaluation. this AM had been difficult and grumpy with staff, refusing breakfast. This afternoon, after PT, he is agreeable to eat lunch. He shows signficant ataxia, and required assistance with feeding. Later this afternoon, still confused, disoriented to place and time, but more alert and aware of surroundings. Current Medications Current Medications Current Medications: Current Medications Generic Name Dose Route Start Last Admin Trade Name Freq PRN Reason Stop Dose Admin Acetaminophen 650 mg 04/16/25 23:33 04/21/25 10:11 Acetaminophen 325 Mg Tablet PO 650 mg Q4HR PRN Administration Pain 1 to 4, or Fever Chlordiazepoxide HCl 25 mg 04/21/25 13:00 04/21/25 12:33 Chlordiazepoxide 25 Mg Capsule PO 25 mg Q6HR MANPREET Administration Enoxaparin Sodium 40 mg 04/17/25 09:00 04/21/25 08:34 Enoxaparin 40 Mg/0.4 Ml Syringe SUBQ 40 mg DAILY MANPREET Administration Famotidine 20 mg 04/17/25 09:00 04/21/25 08:37 Famotidine 20 Mg/2 Ml Vial IVP 20 mg BID MANPREET Administration Gabapentin 300 mg 04/22/25 21:00 Gabapentin 300 Mg Capsule PO DAILY MANPREET Hydroxyzine Pamoate 50 mg 04/18/25 15:49 04/21/25 08:38 Hydroxyzine Pamoate 25 Mg Capsule PO 50 mg Q8H PRN Administration Anxiety Ampicillin Sodium/Sulbactam 100 mls @ 200 mls/hr 04/17/25 18:00 04/21/25 12:34 Sodium 1.5 gm/ Sodium Chloride IV 200 mls/hr Q6HR MANPREET Administration Ibuprofen 400 mg 04/17/25 12:36 04/18/25 03:39 Ibuprofen 400 Mg Tablet PO 400 mg Q6HR PRN Administration temp >38.5 Lorazepam 1 mg 04/21/25 12:00 Lorazepam 1 Mg Tablet PO Q1H PRN CIWA > 8 Protocol Nicotine 1 patch 04/18/25 16:13 04/21/25 08:38 Nicotine 21 Mg Patch TOP 1 patch DAILY MANPREET Administration Polyethylene Glycol 17 gm 04/19/25 09:00 04/21/25 08:38 Polyethylene Glycol 3350 17 Gm Packet PO 17 gm DAILY MANPREET Administration Multivit/Folic Acid/Iron 1 tab 04/19/25 09:00 04/21/25 08:38 Vitamin Tablet PO 1 tab DAILY MANPREET Administration Sodium Chloride 10 ml 04/17/25 01:00 04/21/25 08:38 Sodium Chloride Flush 0.9% 10 Ml Syringe IVP 10 ml 0100,0900,1700 MANPREET Administration Sodium Chloride 10 ml 04/16/25 23:33 04/20/25 23:41 Sodium Chloride Flush 0.9% 10 Ml Syringe IVP 10 ml PRN PRN Administration NEEDED PER PROVIDER ORDERS Tamsulosin HCl 0.4 mg 04/21/25 09:00 04/21/25 10:11 Tamsulosin 0.4 Mg Capsule PO 0.4 mg DAILY MANPREET Administration Thiamine HCl 100 mg 04/19/25 09:00 04/21/25 08:38 Thiamine 100 Mg Tablet PO 100 mg DAILY MANPREET Administration Trazodone HCl 50 mg 04/18/25 21:00 04/20/25 21:03 Trazodone 50 Mg Tablet PO 50 mg HS MANPREET Administration Zinc Oxide 113 gm 04/19/25 20:16 04/20/25 22:16 Cod Liver Oil/Zinc Oxide 113 Gm Tube TOP 1 applic PRN PRN Administration Skin Care Objective Vital Signs/Intake & Output Reviewed Vital Signs: Yes Vital Signs: Vital Signs x48h Temp Pulse Resp BP Pulse Ox 04/21/25 12:00 109 H 24 127/63 95 04/21/25 11:33 102 H 32 H 106/68 97 04/21/25 10:00 104 H 32 H 139/89 H 96 04/21/25 09:00 110 H 26 H 147/87 H 97 04/21/25 08:00 37.2 C 119 H 28 H 149/92 H 97 04/21/25 07:00 101 H 23 128/89 94 Intake & Output: Intake & Output 04/18/25 04/19/25 04/20/25 04/21/25 23:59 23:59 23:59 23:59 Intake Total 6070 / 6070 1312 / 1312 2275 / 2275 1360 / 1360 Output Total 1015 / 1015 925 / 925 1100 / 1100 600 / 600 Balance 5055 / 5055 387 / 387 1175 / 1175 760 / 760 Weight (kg) 115 kg 120 kg 112 kg 114 kg Objective General Appearance: positive No acute distress and Other (sleeping, appears comfortable. ) Eyes Bilateral: positive Conjunctivae nml ENT: positive ENT inspection nml Neck: positive Nml inspection Respiratory: positive No respiratory distress, Rhonchi (bilateral) and Other (desats to mid 80's while eating) Cardiovascular: positive Regular rate & rhythm and Other (very mild tachycardia while eating, low 100's. ) Abdomen: positive No distention Skin: positive Color nml and Dry Extremities: positive No pedal edema Neurologic/Psychiatric: positive Disoriented to place and Disoriented to time Lab Results 04/21/25 04:28 04/21/25 04:28 Other Labs: Lab Results x24hrs 04/21/25 04/20/25 04/20/25 Range/Units 04:28 20:26 15:05 WBC 5.5 (4.8-10.8) x10^3/uL RBC 3.03 L (4.70-6.10) 10^6/uL Hgb 11.8 L (14.0-18.0) g/dL Hct 35.1 L (42.0-52.0) % MCV 115.8 H (80.0-94.0) fL MCH 38.9 H (27.0-31.0) pg MCHC 33.6 (32.0-36.0) g/dL RDW 13.5 (12.0-15.0) % Plt Count 145 (130-450) 10^3/uL MPV 10.7 (7.4-11.4) fL Neut # (Auto) 3.6 (1.5-6.6) 10^3/uL Lymph # (Auto) 1.1 L (1.5-3.5) 10^3/uL [place] # (Auto) 0.8 (0.0-1.0) 10^3/uL Eos # (Auto) 0.1 (0.0-0.7) 10^3/uL Baso # (Auto) 0.1 (0.0-0.1) 10^3/uL Absolute Nucleated RBC 0.00 x10^3/uL Nucleated RBC % 0.0 /100WBC Manual Slide Review Indicated WBC Morphology NORMAL APPEARANCE (NORMAL) Platelet Estimate NORMAL (130-450,000) (NORMAL) Platelet Morphology NORMAL APPEARANCE (NORMAL) RBC Morph Micro Appear 2+ MACROCYTOSIS (NORMAL) VBG pH 7.508 H (7.31-7.41) Ionized Calcium 1.14 (1.09-1.30) mmol/L Sodium 137 (135-145) mmol/L Potassium 3.5 4.1 3.8 (3.5-4.5) mmol/L Chloride 104 (101-111) mmol/L Carbon Dioxide 26 (21-32) mmol/L Anion Gap 7.0 (6-13) BUN 7 (6-20) mg/dL Creatinine 0.5 L (0.6-1.3) mg/dL Estimated GFR (MDRD) 178 (>89) Glucose 91 (74-104) mg/dL Calcium 8.4 L (8.5-10.3) mg/dL Phosphorus 3.0 (2.5-5.0) mg/dL Magnesium 1.7 1.9 (1.7-2.3) mg/dL Assessment/Plan Problem List (1) Delirium tremens: Impression: Last drink 04/14 at about 2200. Intubated in the emergency department. This was a difficult intubation patient had very anterior airway. He was intubated for airway protection in the setting of DTs with active tremors and hallucinations, as well as seizure. He had a CT of the head which was negative. There is no documented aspiration event, however this patient has declined over the course of hospital day 2 with fever and a period of hypoxia. Chest XR had a pattern c/w aspiration . he has defervesced on broad spectrum abx. He has had some hypoxia on and off, treated with supplemental oxygen. none for almost 24 hours. Has had a skip course with his withdrawal and delirium. We have stopped precedex altogether, and cut librium by 50%. I am using symptom triggered as needed oral ativan. he remains confused and mildly tremulous, but is eating his meals and awake. through the day, his ataxia has slowly improved but he is far from baseline. The recommendation from PT evaluation today is that patient will need to go to SNF for rehab. he has decreased truncal strength and tends to lean to one side. he does not have any focal neurological deficit. Due to these findings, i am ordering an MRI of the brain. I do not have an tissue technologist in house today, so will complete this test tomorrow if he does not improve. vistaril as an adjunct for anxiety. He is transferring to med/surg level of care today. . (2) Aspiration into lower respiratory tract: Impression: He was febrile, and started on unasyn and vancomycin for presumed aspiration in the setting of DTs, seizure, and difficult intubation. He was able to extubate 04/18 despite the aspiration- post extubation he has been able to wean to room air- has gone on and off oxygen, but completely off for about 24 hours. has right side rhonchi on lung auscultation today. His lung exam is stable compared to yesterday. Tachypnea is markedly improved today w normal respiratory rate. . (3) Dehydration: Impression: resolved, needs to be fed due to ataxia, but he was able to eat most of his meal at lunchtime. (4) Urinary retention: Impression: Straight cath x 1. Flomax started this AM. will continue to follow bladder protocol with vizcaino placement if needed. (5) Nicotine addiction: Impression: admits to smoking 1/2 ppd. he is having nicotine cravings. I have ordered nicotine patch 21mg daily. This patient's diagnosis and treatment plan was discussed this AM with attending physician as a part of multi disciplinary rounding meeting. I have spent 53 minutes in the care of this patient today. This includes time [id number], review and ordering of diagnostic imaging and laboratory studies. Monitoring the patient's signs symptoms, evaluation of medication effectiveness and patient's response to treatment
[2025-04-21] MEDS: GABAPENTIN 300 MG CAPSULE PO SCH (21:13)
[2025-04-22] MEDS: LORazepam 2 MG/ML VIAL IVP PRN (02:27)
[2025-04-22 08:29] LABS: HCT - HEMATOCRIT 32.8 % (42.0-52.0); HGB - HEMOGLOBIN 11.5 g/dL (14.0-18.0); MEAN PLATELET VOLUME 10.5 fL (7.4-11.4); PLT - PLATELET COUNT 192.0 10^3/uL (130-450); RED CELL DISTRIBUTION WIDTH 13.5 % (12.0-15.0)
[2025-04-22 08:49] LABS: BUN - BLOOD UREA NITROGEN 6.0 mg/dL (6-20); CARBON DIOXIDE - CO2 25.0 mmol/L (21-32); CREATININE 0.4 mg/dL (0.6-1.3); GFR - MDRD 231.0 (>89)
--- NOTE | 2025-04-22 16:36 | PROVIDER PROGRESS NOTE ---
Subjective Prog Note Date Prog Note Date: 04/22/25 Subjective Subjective: Not at all oriented today. sleeping and will open eyes to painful stimulus, but does not provide coherent answers. Has been tremulous and having hallucinations, causing him to score on the CIWA scale. Current Medications Current Medications Current Medications: Current Medications Generic Name Dose Route Start Last Admin Trade Name Freq PRN Reason Stop Dose Admin Acetaminophen 650 mg 04/16/25 23:33 04/21/25 20:36 Acetaminophen 325 Mg Tablet PO 650 mg Q4HR PRN Administration Pain 1 to 4, or Fever Chlordiazepoxide HCl 25 mg 04/22/25 14:00 04/22/25 13:21 Chlordiazepoxide 25 Mg Capsule PO 25 mg Q8HR MANPREET Administration Enoxaparin Sodium 40 mg 04/17/25 09:00 04/22/25 08:23 Enoxaparin 40 Mg/0.4 Ml Syringe SUBQ 40 mg DAILY MANPREET Administration Famotidine 20 mg 04/17/25 09:00 04/22/25 08:23 Famotidine 20 Mg/2 Ml Vial IVP 20 mg BID MANPREET Administration Gabapentin 300 mg 04/21/25 21:00 04/22/25 08:43 Gabapentin 300 Mg Capsule PO 300 mg DAILY MANPREET Administration Hydroxyzine Pamoate 50 mg 04/18/25 15:49 04/22/25 04:38 Hydroxyzine Pamoate 25 Mg Capsule PO 50 mg Q8H PRN Administration Anxiety Ibuprofen 400 mg 04/17/25 12:36 04/18/25 03:39 Ibuprofen 400 Mg Tablet PO 400 mg Q6HR PRN Administration temp >38.5 Lorazepam 1 mg 04/21/25 12:00 04/22/25 13:21 Lorazepam 1 Mg Tablet PO 1 mg Q1H PRN Administration CIWA > 8 Protocol Nicotine 1 patch 04/18/25 16:13 04/22/25 08:24 Nicotine 21 Mg Patch TOP 1 patch DAILY MANPREET Administration Polyethylene Glycol 17 gm 04/19/25 09:00 04/22/25 08:24 Polyethylene Glycol 3350 17 Gm Packet PO Not Given DAILY MANPREET Multivit/Folic Acid/Iron 1 tab 04/19/25 09:00 04/22/25 08:43 Vitamin Tablet PO 1 tab DAILY MANPREET Administration Sodium Chloride 10 ml 04/17/25 01:00 04/22/25 08:24 Sodium Chloride Flush 0.9% 10 Ml Syringe IVP 10 ml 0100,0900,1700 MANPREET Administration Sodium Chloride 10 ml 04/16/25 23:33 04/22/25 05:49 Sodium Chloride Flush 0.9% 10 Ml Syringe IVP 10 ml PRN PRN Administration NEEDED PER PROVIDER ORDERS Tamsulosin HCl 0.4 mg 04/21/25 09:00 04/22/25 08:43 Tamsulosin 0.4 Mg Capsule PO 0.4 mg DAILY MANPREET Administration Thiamine HCl 100 mg 04/19/25 09:00 04/22/25 08:43 Thiamine 100 Mg Tablet PO 100 mg DAILY MANPREET Administration Trazodone HCl 50 mg 04/18/25 21:00 04/21/25 20:37 Trazodone 50 Mg Tablet PO 50 mg HS MANPREET Administration Zinc Oxide 113 gm 04/19/25 20:16 04/22/25 04:09 Cod Liver Oil/Zinc Oxide 113 Gm Tube TOP 1 applic PRN PRN Administration Skin Care Objective Vital Signs/Intake & Output Reviewed Vital Signs: Yes Vital Signs: Vital Signs x48h Temp Pulse Resp BP Pulse Ox 04/22/25 12:11 37.1 C 103 H 25 H 123/83 93 Intake & Output: Intake & Output 04/19/25 04/20/25 04/21/25 04/22/25 23:59 23:59 23:59 23:59 Intake Total 1312 / 1312 2275 / 2275 1678 / 1678 200 / 200 Output Total 925 / 925 1100 / 1100 900 / 900 1700 / 1700 Balance 387 / 387 1175 / 1175 778 / 778 -1500 / -1500 Weight (kg) 120 kg 112 kg 114 kg 117 kg Objective General Appearance: positive No acute distress and Other (obtunded, sometimes arouses to loud voice, other times to pain. ) Eyes Bilateral: positive Conjunctivae nml ENT: positive ENT inspection nml Neck: positive Nml inspection Respiratory: positive No respiratory distress, Wheezes (end expiratory, bilateral. ), Rhonchi (bilateral) and Other (tachypnea is slowly improving to mid 20's and sometimes normal respiratory rate. ) Cardiovascular: positive Regular rate & rhythm and Other (very mild tachycardia, low 100's. ) Abdomen: positive No distention Skin: positive Color nml, Dry and Other (erythema at antecubital fossae bilaterally, some mild erythema in the groin area and onto the lower abdomen) Extremities: positive No pedal edema Neurologic/Psychiatric: positive Disoriented to place and Disoriented to time Lab Results 04/22/25 08:24 04/22/25 08:24 Other Labs: Lab Results x24hrs 04/22/25 04/22/25 Range/Units 11:47 08:24 WBC 5.6 (4.8-10.8) x10^3/uL RBC 2.93 L (4.70-6.10) 10^6/uL Hgb 11.5 L (14.0-18.0) g/dL Hct 32.8 L (42.0-52.0) % MCV 111.9 H (80.0-94.0) fL MCH 39.2 H (27.0-31.0) pg MCHC 35.1 (32.0-36.0) g/dL RDW 13.5 (12.0-15.0) % Plt Count 192 (130-450) 10^3/uL MPV 10.5 (7.4-11.4) fL Sodium 135 (135-145) mmol/L Potassium 3.5 (3.5-4.5) mmol/L Chloride 103 (101-111) mmol/L Carbon Dioxide 25 (21-32) mmol/L Anion Gap 7.0 (6-13) BUN 6 (6-20) mg/dL Creatinine 0.4 L (0.6-1.3) mg/dL Estimated GFR (MDRD) 231 (>89) Glucose 90 (74-104) mg/dL Calcium 8.4 L (8.5-10.3) mg/dL Ammonia 40.5 (18-72) umol/L Vitamin B12 253 (180-914) pg/mL Folate 5.9 (5.90 - >24.8) ng/mL Assessment/Plan Problem List (1) Delirium tremens: Impression: Last drink 04/14 at about 2200. Intubated in the emergency department. This was a difficult intubation patient had very anterior airway. He was intubated for airway protection in the setting of DTs with active tremors and hallucinations, as well as seizure. He had a CT of the head which was negative. There is no documented aspiration event, however this patient has declined over the course of hospital day 2 with fever and a period of hypoxia. Chest XR had a pattern c/w aspiration . he has defervesced on broad spectrum abx. He has had some hypoxia on and off, treated with supplemental oxygen. none for almost 24 hours. Has had a skip course with his withdrawal and delirium. We have stopped precedex altogether, and cut librium by 50% on 04/21, then tapered librium further to q8 hours today. I am using symptom triggered as needed oral ativan. he remains confused and mildly tremulous, and today his delirium is worse. The recommendation from PT evaluation today is that patient will need to go to SNF for rehab. he has decreased truncal strength and tends to lean to one side. he does not have any focal neurological deficit. Due to these findings, i am ordering an MRI of the brain. This has been done but not read. It is possible that his altered mental status is not from alcohol withdrawal. His ammonia level is normal. I asked for ultrasound of the abdomen to assess for ascites and hepatic steatosis/cirrhosis. PAtient became belligerent and confused and was unkind to the tech. Therefore, will try to get CT which should involve less interaction with him. vistaril as an adjunct for anxiety. Transferred to med/surg level of care 04/21. (2) Aspiration into lower respiratory tract: Impression: He was febrile, and started on unasyn and vancomycin for presumed aspiration in the setting of DTs, seizure, and difficult intubation. He was able to extubate 04/18 despite the aspiration- post extubation he has been able to wean to room air- has gone on and off oxygen, but completely off for about 24 hours. Has rhonchi and end expiratory wheeze on exam today. I will start QID duonebs. He is not able to ask for treatments if he feels he needs them. his oxygen level on room air remains normal. I have stopped the unasyn today, he has completed 5 days of coverage. (3) Dehydration: Impression: resolved, needs to be fed due to ataxia,and not eating today due to delirium. (4) Urinary retention: Impression: Several straight caths. he is day 2 Flomax. I have ordered bladder protocol and he may need a vizcaino (5) Nicotine addiction: Impression: admits to smoking 1/2 ppd. he is having nicotine cravings when he is alert enough to voice them. I have ordered nicotine patch 21mg daily. This patient's diagnosis and treatment plan was discussed this AM with attending physician as a part of multi disciplinary rounding meeting. I have spent 55 minutes in the care of this patient today. This includes time [id number], review and ordering of diagnostic imaging and laboratory studies. Monitoring the patient's signs symptoms, evaluation of medication effectiveness and patient's response to treatment
--- NOTE | 2025-04-22 17:32 | MRI Report ---
PROCEDURE: MRI Brain WO INDICATIONS: severe gait imbalance TECHNIQUE: Multisequence MRI of the brain was performed without intravenous contrast. COMPARISON: CT head dated 04/16/2025. FINDINGS: Image quality: Excellent. CSF Spaces: Basal cisterns are patent. No extra-axial fluid collections. Ventricles are normal in size and shape. Brain: No intracranial masses or hemorrhage. Martinez/white matter interface is normal. Brainstem appears normal. Diffusion-weighted images demonstrate no acute ischemic insult. No chronic ischemic insults. Normal intravascular flow voids are present. Skull and face: Calvarium has normal marrow signal. Orbits appear normal. Sinuses: Development of patchy right mastoid opacification. Development of mild bilateral maxillary sinus fluid, right greater than left. IMPRESSION: 1. No acute intracranial process. 2. Development of patchy opacification of the right mastoids, typically a incidental finding. However, recommend correlation for presence or absence of symptoms of mastoiditis. 3. Development of mild opacification of the maxillary sinuses, right greater than left. Reviewed by: Angelo Potts MD on 04/22/2025 5:31 PM PDT Approved by: Angelo Potts MD on 04/22/2025 5:31 PM PDT Station ID: [id number]
[2025-04-22] MEDS: IPRATROPIUM/ALBUTEROL 3 ML NEB INH SCH (19:24)
[2025-04-22] MEDS ORDERED: HALOPERIDOL 5 MG/ML VIAL IVP PRN (21:00)
[2025-04-23 01:05] LABS: GLUCOSE, URINE (UA) NEGATIVE (NEGATIVE); KETONES,URINE (UA) >=80 mg/dL (NEGATIVE); OCCULT BLOOD,URINE NEGATIVE (NEGATIVE)
[2025-04-23 01:11] LABS: SQUAMOUS EPITHELIAL CELL,UR NONE SEEN (<= Few)
--- NOTE | 2025-04-23 09:26 | PROVIDER PROGRESS NOTE ---
Subjective Prog Note Date Prog Note Date: 04/23/25 Prog Note Time: 09:25 Subjective Pt reports feeling: Improved Subjective: This is his eighth day of admission for alcohol withdrawal. He was intubated due to the severity of withdrawal. He was also started on empiric antibiotics for fever.Nursing reports that he did require p.o. Ativan several times but no outburst of agitation, and CIWA was 10-16. Darling was placed because of bladder scan showing 670 cc urine retention. UA is negative for infection but has high ketones. Continues to spike temperatures to 38.4 that responded to Tylenol x 2. Brain MRI yesterday shows him to have mastoiditis as well as sinusitis. Right greater than left. Abdomen pelvis CT was done yesterday but report is not ready yet. Chest x-ray done on the has scattered atelectasis and or infiltrate that is improved from the x-ray on the . On the he had right lower lobe infiltrate versus atelectasis. Blood cultures have been negative. UA is negative. He denies cough, shortness of breath. Denies chest pain. Denies headache. Just feels out of it. Tells me he has been an alcoholic since he was 15 and initially he had "control of it" and only drink 3 beers at night before he went to sleep. And then it just got out of control. Then he lost his job of 21 years and they gave him 6 months severance pay so he felt like he did not have to work for 6 months. And his alcohol abuse escalated exponentially. Currently in the process of from his who is also alcoholic. He worries about his kids. Current Medications Current Medications Current Medications: Current Medications Generic Name Dose Route Start Last Admin Trade Name Freq PRN Reason Stop Dose Admin Acetaminophen 650 mg 04/16/25 23:33 04/23/25 02:54 Acetaminophen 325 Mg Tablet PO 650 mg Q4HR PRN Administration Pain 1 to 4, or Fever Albuterol/Ipratropium 3 ml 04/22/25 19:00 04/23/25 07:56 Ipratropium/Albuterol 3 Ml Neb INH 3 ml RTQID MANPREET Administration Amoxicillin 1,500 mg 04/23/25 10:00 Amoxicillin 250 Mg Capsule PO BID MANPREET Amoxicillin/Clavulanate Potassium 1 tab 04/23/25 10:00 Amox/Clav 500 Mg/125 Mg Tablet PO BID MANPREET Chlordiazepoxide HCl 25 mg 04/22/25 14:00 04/23/25 05:39 Chlordiazepoxide 25 Mg Capsule PO 25 mg Q8HR MANPREET Administration Enoxaparin Sodium 40 mg 04/17/25 09:00 04/23/25 08:22 Enoxaparin 40 Mg/0.4 Ml Syringe SUBQ 40 mg DAILY MANPREET Administration Famotidine 20 mg 04/23/25 21:00 Famotidine 20 Mg Tablet PO BID MANPREET Gabapentin 300 mg 04/21/25 21:00 04/23/25 08:23 Gabapentin 300 Mg Capsule PO 300 mg DAILY MANPREET Administration Haloperidol 3 mg 04/22/25 21:00 Haloperidol 5 Mg/Ml Vial IVP 04/23/25 20:59 ONCE PRN Agitation Hydroxyzine Pamoate 50 mg 04/18/25 15:49 04/22/25 22:29 Hydroxyzine Pamoate 25 Mg Capsule PO 50 mg Q8H PRN Administration Anxiety Ibuprofen 400 mg 04/17/25 12:36 04/18/25 03:39 Ibuprofen 400 Mg Tablet PO 400 mg Q6HR PRN Administration temp >38.5 Lorazepam 1 mg 04/21/25 12:00 04/23/25 03:24 Lorazepam 1 Mg Tablet PO 1 mg Q1H PRN Administration CIWA > 8 Protocol Nicotine 1 patch 04/18/25 16:13 04/23/25 08:23 Nicotine 21 Mg Patch TOP 1 patch DAILY MANPREET Administration Polyethylene Glycol 17 gm 04/19/25 09:00 04/23/25 08:08 Polyethylene Glycol 3350 17 Gm Packet PO Not Given DAILY MANPREET Multivit/Folic Acid/Iron 1 tab 04/19/25 09:00 04/23/25 08:23 Vitamin Tablet PO 1 tab DAILY MANPREET Administration Sodium Chloride 10 ml 04/17/25 01:00 04/23/25 08:23 Sodium Chloride Flush 0.9% 10 Ml Syringe IVP 10 ml 0100,0900,1700 MANPREET Administration Sodium Chloride 10 ml 04/16/25 23:33 04/22/25 05:49 Sodium Chloride Flush 0.9% 10 Ml Syringe IVP 10 ml PRN PRN Administration NEEDED PER PROVIDER ORDERS Tamsulosin HCl 0.4 mg 04/21/25 09:00 04/23/25 08:23 Tamsulosin 0.4 Mg Capsule PO 0.4 mg DAILY MANPREET Administration Thiamine HCl 100 mg 04/19/25 09:00 04/23/25 08:23 Thiamine 100 Mg Tablet PO 100 mg DAILY MANPREET Administration Trazodone HCl 50 mg 04/18/25 21:00 04/22/25 22:29 Trazodone 50 Mg Tablet PO 50 mg HS MANPREET Administration Zinc Oxide 113 gm 04/19/25 20:16 04/22/25 04:09 Cod Liver Oil/Zinc Oxide 113 Gm Tube TOP 1 applic PRN PRN Administration Skin Care Objective Vital Signs/Intake & Output Reviewed Vital Signs: Yes Vital Signs: Vital Signs x48h Temp Pulse Pulse Resp BP Pulse Ox 04/23/25 09:00 37.9 C 99 25 H 117/70 90 L 04/23/25 07:57 84 26 H 04/23/25 04:37 37.1 C 04/23/25 04:11 37.1 C 88 18 144/87 H 93 04/23/25 02:59 37.1 C Intake & Output: Intake & Output 04/20/25 04/21/25 04/22/25 04/23/25 23:59 23:59 23:59 23:59 Intake Total 2275 / 2275 1678 / 1678 300 / 300 270 / 270 Output Total 1100 / 1100 900 / 900 1700 / 1700 1450 / 1450 Balance 1175 / 1175 778 / 778 -1400 / -1400 -1180 / -1180 Weight (kg) 112 kg 114 kg 117 kg 116 kg Objective General Appearance: positive No acute distress (Has baseline tachycardia that continues over 100. But no diaphoresis or tremulousness right now) and Other (Sleepy but oriented to person, place, not time. Knows why he is here.) Eyes Bilateral: positive PERRL ENT: positive No signs of dehydration Neck: positive No JVD; negative Stiff neck or Carotid bruit Respiratory: positive Chest non-tender, No respiratory distress and Breath sounds nml; negative Wheezes, Rales or Rhonchi Cardiovascular: positive Regular rate & rhythm and Tachycardia Abdomen: positive Non-tender, No organomegaly and Nml bowel sounds Skin: positive Color nml, Warm and Dry Extremities: positive Non-tender, Full ROM and Nml appearance Neurologic/Psychiatric: positive CN's nml (2-12), Motor nml (But slow response. Received 3 doses of p.o. Ativan last night.), Mood/affect nml and Disoriented to time Lab Results 04/22/25 08:24 04/22/25 08:24 Other Labs: Lab Results x24hrs 04/23/25 04/22/25 Range/Units 00:40 11:47 Ammonia 40.5 (18-72) umol/L Urine Color YELLOW Urine Clarity V (CLEAR) Urine pH 6.0 (5.0-7.5) PH Ur Specific [place] 1.020 (1.002-1.030) Urine Protein NEGATIVE (NEGATIVE) mg/dL Urine Glucose (UA) NEGATIVE (NEGATIVE) mg/dL Urine Ketones >=80 H (NEGATIVE) mg/dL Urine Occult Blood NEGATIVE (NEGATIVE) Urine Nitrite NEGATIVE (NEGATIVE) Urine Bilirubin NEGATIVE (NEGATIVE) Urine Urobilinogen 0.2 (NORMAL) (NORMAL) E.U./dL Ur Leukocyte Esterase NEGATIVE (NEGATIVE) Urine RBC 0-5 (0-5) /HPF Urine WBC 0-3 (0-3) /HPF Ur Squamous Epith Cells NONE SEEN (<= Few) Urine Bacteria None Seen (None Seen) /HPF Urine Culture Comments NOT INDICATED Assessment/Plan Problem List (1) Fever: Impression: Greater than 40 minutes was spent in reviewing the chart, speaking to the patient, explaining to him what is happening and what her treatment plan is. He has been febrile since 04/17 and started on unasyn and vancomycin for presumed aspiration in the setting of DTs, seizure, and difficult intubation. He was able to extubate 04/18 despite the aspiration- post extubation he has been able to wean to room air- has gone on and off oxygen, but completely off since 16:00 on 04/19. He has had rhonchi and expiratory wheezing on lung exam intermittently. Today's lung exam is negative. Treatment has been no DuoNebs. A repeat UA was done and negative. MRI of the brain was done 04/22 because of continued fever and it shows mastoiditis and sinusitis. Chest x-ray is equivocal for infiltrate. Blood cultures are negative. White cell count has been normal. No labs were done today. I do not feel the need to repeat labs today and will do them again tomorrow. Finished Zosyn yesterday after 5 days of treatment. He had a fever starting the evening of the and continues to have fevers all day long on the . But the he had fever twice that day. None on the , or . Once off antibiotics spiked at midnight last night. He has mastoiditis and sinusitis may be the cause of fever with infection Plan: Up-to-date recommends amoxicillin with clavulanic acid at 2000 mg / 125 mg twice daily. Our pharmacy formulary only allows for 875 mg / 125 mg twice daily. I have discussed the case with pharmacy and they will see how they can adjust our pharmacy dictionary so that he can get the recommended dose. I started him on that. I will also start him on Florastor. (2) Delirium tremens: Impression: Last drink 04/14 at about 2200. Intubated in the emergency department. This was a difficult intubation patient had very anterior airway. He was intubated for airway protection in the setting of DTs with active tremors and hallucinations, as well as seizure. He had a CT of the head which was negative. There is no documented aspiration event, however this patient has declined over the course of hospital day 2 with fever and a period of hypoxia. Chest XR had a pattern c/w aspiration . he has defervesced on broad spectrum abx. He has had some hypoxia on and off, treated with supplemental oxygen. none for almost 24 hours. Has had a skip course with his withdrawal and delirium. We have stopped precedex altogether, and cut librium by 50% on 04/21, then tapered librium further to q8 hours 04/22. He is also getting symptom triggered as needed oral ativan. Librium was 25 mg 3 times daily. Last dose was at 5:40 this morning. Ativan is as needed. He had a dose at 1:30 this morning, 2 this morning, and 3:30 this morning. He did receive 1 dose of Haldol IV push at 2100 last night. Today no tremulousness and no diaphoresis. Oriented and able to tell me his story. Cooperative and following commands. The recommendation from PT evaluation 04/22 is that patient will need to go to SNF for rehab. he has decreased truncal strength and tends to lean to one side. he does not have any focal neurological deficit. Because he was leaning to 1 side and having fevers, the MRI of the brain was done and discussed as above under fever. Previous hospitalist has been wondering if his altered mental status could be due to something else other than alcohol. Ammonia level was normal. Ultrasound of the abdomen was ordered to assess for ascites. He was belligerent with the tech and it couldn't be done. So a CT abdomen and pelvis was ordered and done yesterday at 4:16 PM. Report in the chart still not available. I will track that down today. Abdominal exam is benign. vistaril as an adjunct for anxiety. Transferred to med/surg level of care 04/21. (3) Dehydration: Impression: resolved, needs to be fed due to ataxia,and Was not eating because of his delirium. I am hoping, with today's alertness, that he would cooperate and eat breakfast. He is actually asking politely to be repositioned in the bed so that he could sit up. (4) Urinary retention: Impression: Several straight caths. he is day 2 Flomax. Bladder protocol was ordered. Today, in the metal finish inspector hours, he had urinary retention requiring a Darling. So he now has an indwelling catheter (5) Nicotine addiction: Impression: admits to smoking 1/2 ppd. he is having nicotine cravings when he is alert enough to voice them. I have ordered nicotine patch 21mg daily. Qualifiers: Nicotine product type: cigarettes Substance use status: in withdrawal Qualified Code(s): F17.213 - Nicotine dependence, cigarettes, with withdrawal
[2025-04-23] MEDS: AMOX/CLAV 500 MG/125 MG TABLET PO SCH (10:06)
[2025-04-23] MEDS: AMOXICILLIN 250 MG CAPSULE PO SCH (10:07)
--- NOTE | 2025-04-23 10:22 | CT Report ---
PROCEDURE: CT Abdomen/Pelvis W INDICATIONS: ? ascites/hepatic steatosis. CONTRAST: IV contrast OMNI 300 100ML TECHNIQUE: After the administration of intravenous contrast, a CT scan of the abdomen and pelvis was performed. Images were recorded and evaluated at appropriate window settings. Reformats: coronal and sagittal. For radiation dose reduction, the following was used: automated exposure control, adjustment of mA and/or kV according to patient size. COMPARISON: None. FINDINGS: Image quality: Diagnostic Lower chest: Subtle lower lung groundglass nodules. Basal atelectasis. No pleural effusions. Normal heart size. Liver: Liver measures 20 cm. At least moderate hepatic steatosis is seen Gallbladder and biliary system: Mild pericholecystic nonspecific edema, possibly reactive to adjacent liver disease. Nondistended gallbladder. Nondilated biliary system Pancreas: No ductal dilation Spleen: Mild splenomegaly at 15 cm AP dimension Adrenals: No discrete nodules. Kidneys: No solid renal mass. No hydronephrosis. Vessels and lymph nodes: The main portal vein is patent. No abdominal aortic aneurysm or lymphadenopathy by size criteria. Bowel and peritoneum: No drainable ascites or abscess. Nondilated appendix. No bowel obstruction. Body wall: Mild to moderate diffuse anasarca. Pelvis: Prostate has dystrophic calcifications. Bladder is unremarkable. Bones: Degenerative osseous changes. No aggressive appearing osseous abnormality. Bilateral nonacute appearing rib fractures. IMPRESSION: Hepatomegaly. At least moderate hepatic steatosis. Subtle lower lung groundglass nodules, likely infectious/inflammatory. Mild splenomegaly. Mild to moderate diffuse body wall anasarca. No drainable ascites. Other findings above. Reviewed by: Alex Sims MD on 04/23/2025 10:20 AM PDT Approved by: Alex Sims MD on 04/23/2025 10:20 AM PDT Station ID: [id number]
[2025-04-23] MEDS: SACCHAROMYCES BOULARDII 250 MG CAPSULE PO SCH (17:21)
[2025-04-23] MEDS: FAMOTIDINE 20 MG TABLET PO SCH (21:27)
--- NOTE | 2025-04-24 09:42 | PROVIDER PROGRESS NOTE ---
Subjective Subjective Subjective: Today, patient is alert and oriented x 3, and conversant. He is frustrated that he does not have the mobility he had prior to coming in. We talked about rehab, and he is reluctantly agreeable. He denies any fevers or chills overnight. He has no difficulty breathing, abdominal pain. He has been eating and drinking well. He does note a rash kind of around his elbows, which he states he gets when he gets warm. Current Medications Current Medications Current Medications: Current Medications Generic Name Dose Route Start Last Admin Trade Name Freq PRN Reason Stop Dose Admin Acetaminophen 650 mg 04/16/25 23:33 04/23/25 02:54 Acetaminophen 325 Mg Tablet PO 650 mg Q4HR PRN Administration Pain 1 to 4, or Fever Albuterol/Ipratropium 3 ml 04/22/25 19:00 04/24/25 07:28 Ipratropium/Albuterol 3 Ml Neb INH 3 ml RTQID MANPREET Administration Amoxicillin 1,500 mg 04/23/25 10:00 04/24/25 08:23 Amoxicillin 250 Mg Capsule PO 1,500 mg BID MANPREET Administration Amoxicillin/Clavulanate Potassium 1 tab 04/23/25 10:00 04/24/25 08:23 Amox/Clav 500 Mg/125 Mg Tablet PO 1 tab BID MANPREET Administration Chlordiazepoxide HCl 25 mg 04/24/25 09:00 04/24/25 08:23 Chlordiazepoxide 25 Mg Capsule PO 25 mg BID MANPREET Administration Enoxaparin Sodium 40 mg 04/17/25 09:00 04/24/25 08:22 Enoxaparin 40 Mg/0.4 Ml Syringe SUBQ 40 mg DAILY MANPREET Administration Famotidine 20 mg 04/23/25 21:00 04/24/25 08:22 Famotidine 20 Mg Tablet PO 20 mg BID MANPREET Administration Gabapentin 300 mg 04/21/25 21:00 04/24/25 08:23 Gabapentin 300 Mg Capsule PO 300 mg DAILY MANPREET Administration Hydroxyzine Pamoate 50 mg 04/18/25 15:49 04/24/25 00:20 Hydroxyzine Pamoate 25 Mg Capsule PO 50 mg Q8H PRN Administration Anxiety Ibuprofen 400 mg 04/17/25 12:36 04/18/25 03:39 Ibuprofen 400 Mg Tablet PO 400 mg Q6HR PRN Administration temp >38.5 Lorazepam 1 mg 04/21/25 12:00 04/23/25 03:24 Lorazepam 1 Mg Tablet PO 1 mg Q1H PRN Administration CIWA > 8 Protocol Nicotine 1 patch 04/18/25 16:13 04/24/25 08:22 Nicotine 21 Mg Patch TOP 1 patch DAILY MANPREET Administration Polyethylene Glycol 17 gm 04/19/25 09:00 04/24/25 08:23 Polyethylene Glycol 3350 17 Gm Packet PO Not Given DAILY MANPREET Multivit/Folic Acid/Iron 1 tab 04/19/25 09:00 04/24/25 08:23 Vitamin Tablet PO 1 tab DAILY MANPREET Administration Saccharomyces Boulardii 250 mg 04/23/25 17:00 04/24/25 08:23 Saccharomyces Boulardii 250 Mg Capsule PO 250 mg BIDWM MANPREET Administration Sodium Chloride 10 ml 04/17/25 01:00 04/24/25 08:24 Sodium Chloride Flush 0.9% 10 Ml Syringe IVP 10 ml 0100,0900,1700 MANPREET Administration Sodium Chloride 10 ml 04/16/25 23:33 04/22/25 05:49 Sodium Chloride Flush 0.9% 10 Ml Syringe IVP 10 ml PRN PRN Administration NEEDED PER PROVIDER ORDERS Tamsulosin HCl 0.4 mg 04/21/25 09:00 04/24/25 08:23 Tamsulosin 0.4 Mg Capsule PO 0.4 mg DAILY MANPREET Administration Thiamine HCl 100 mg 04/19/25 09:00 04/24/25 08:23 Thiamine 100 Mg Tablet PO 100 mg DAILY MANPREET Administration Trazodone HCl 50 mg 04/18/25 21:00 04/23/25 21:26 Trazodone 50 Mg Tablet PO 50 mg HS MANPREET Administration Zinc Oxide 113 gm 04/19/25 20:16 04/22/25 04:09 Cod Liver Oil/Zinc Oxide 113 Gm Tube TOP 1 applic PRN PRN Administration Skin Care Objective Vital Signs/Intake & Output Reviewed Vital Signs: Yes Vital Signs: Vital Signs x48h Temp Pulse Pulse Resp BP Pulse Ox 04/24/25 07:38 97.9 F 93 20 121/78 93 04/24/25 07:29 89 20 04/24/25 04:29 97.9 F 87 18 156/86 H 96 Intake & Output: Intake & Output 04/21/25 04/22/25 04/23/25 08/27/25 23:59 23:59 23:59 23:59 Intake Total 1678 / 1678 300 / 300 770 / 770 120 / 120 Output Total 900 / 900 1700 / 1700 1999 925 / 925 Balance 778 / 778 -1400 / -1400 -1230 / -1230 -805 / -805 Weight (kg) 114 kg 117 kg 116 kg 116.5 kg Objective General Appearance: positive No acute distress (Has baseline tachycardia that continues over 100. But no diaphoresis or tremulousness right now) and Other (Sleepy but oriented to person, place, not time. Knows why he is here.) Eyes Bilateral: positive PERRL ENT: positive No signs of dehydration Neck: positive No JVD; negative Stiff neck or Carotid bruit Respiratory: positive Chest non-tender, No respiratory distress and Breath sounds nml; negative Wheezes, Rales or Rhonchi Cardiovascular: positive Regular rate & rhythm and Tachycardia Abdomen: positive Non-tender, No organomegaly and Nml bowel sounds Skin: positive Color nml and Other (Mild erythema noted on skin folds of the antecubital fossa) Extremities: positive Non-tender, Full ROM and Nml appearance Neurologic/Psychiatric: positive Oriented x3, CN's nml (2-12), Motor nml (But slow response. Received 3 doses of p.o. Ativan last night.) and Mood/affect nml Lab Results 04/22/25 08:24 04/22/25 08:24 Other Labs: Lab Results x24hrs 04/23/25 04/22/25 Range/Units 00:40 11:47 Ammonia 40.5 (18-72) umol/L Urine Color YELLOW Urine Clarity V (CLEAR) Urine pH 6.0 (5.0-7.5) PH Ur Specific [place] 1.020 (1.002-1.030) Urine Protein NEGATIVE (NEGATIVE) mg/dL Urine Glucose (UA) NEGATIVE (NEGATIVE) mg/dL Urine Ketones >=80 H (NEGATIVE) mg/dL Urine Occult Blood NEGATIVE (NEGATIVE) Urine Nitrite NEGATIVE (NEGATIVE) Urine Bilirubin NEGATIVE (NEGATIVE) Urine Urobilinogen 0.2 (NORMAL) (NORMAL) E.U./dL Ur Leukocyte Esterase NEGATIVE (NEGATIVE) Urine RBC 0-5 (0-5) /HPF Urine WBC 0-3 (0-3) /HPF Ur Squamous Epith Cells NONE SEEN (<= Few) Urine Bacteria None Seen (None Seen) /HPF Urine Culture Comments NOT INDICATED Assessment/Plan Problem List (1) Fever: Impression: Patient has been febrile since 04/17. Initially, was on Unasyn and vancomycin for presumed aspiration. He completed a 5-day course of this. No white count. Abdomen/pelvis CT with no obvious source of infection; does show subtle lower lung ground glass nodules, likely infectious. Also shows diffuse anasarca with no drainable ascites. MRI does show mild opacification of the maxillary sinuses. Will treat as bacterial sinusitis with oral Augmentin, high dose. Now afebrile for over 24 hours. Qualifiers: Fever type: unspecified Qualified Code(s): R50.9 - Fever, unspecified (2) Delirium tremens: Impression: Resolved. Continue librium taper. Switched to BID today. Will switch to daily tomorrow and then discontinue. Continue thiamine, multivitamin, folic acid. (3) Dehydration: Impression: Resolved. P.O. intake increasing. (4) Urinary retention: Impression: Darling catheter in palce. (5) Nicotine addiction: Impression: Admits to smoking 1/2 ppd. I have ordered nicotine patch 21mg daily. Qualifiers: Nicotine product type: cigarettes Substance use status: in withdrawal Qualified Code(s): F17.213 - Nicotine dependence, cigarettes, with withdrawal
[2025-04-24] MEDS: CYANOCOBALAMIN 500 MCG TABLET PO SCH (13:01)
[2025-04-24] MEDS: NYSTATIN POWDER 15 GM TOP SCH (13:02)
[2025-04-25 05:20] LABS: HCT - HEMATOCRIT 36.7 % (42.0-52.0); HGB - HEMOGLOBIN 12.0 g/dL (14.0-18.0); MEAN PLATELET VOLUME 10.5 fL (7.4-11.4); PLT - PLATELET COUNT 350.0 10^3/uL (130-450); RED CELL DISTRIBUTION WIDTH 13.8 % (12.0-15.0)
[2025-04-25 05:39] LABS: BUN - BLOOD UREA NITROGEN 6.0 mg/dL (6-20); CARBON DIOXIDE - CO2 26.0 mmol/L (21-32); CREATININE 0.5 mg/dL (0.6-1.3); GFR - MDRD 178.0 (>89)
--- NOTE | 2025-04-25 09:07 | PROVIDER PROGRESS NOTE ---
Subjective Subjective Subjective: Today, patient is alert and oriented x 3, and conversant. He is frustrated that he does not have the mobility he had prior to coming in. We talked about rehab, and he is reluctantly agreeable. He denies any fevers or chills overnight. He has no difficulty breathing, abdominal pain. He has been eating and drinking well. He does note a rash kind of around his elbows, which he states he gets when he gets warm. Current Medications Current Medications Current Medications: Current Medications Generic Name Dose Route Start Last Admin Trade Name Freq PRN Reason Stop Dose Admin Acetaminophen 650 mg 04/16/25 23:33 04/23/25 02:54 Acetaminophen 325 Mg Tablet PO 650 mg Q4HR PRN Administration Pain 1 to 4, or Fever Albuterol/Ipratropium 3 ml 04/22/25 19:00 04/25/25 08:00 Ipratropium/Albuterol 3 Ml Neb INH 3 ml RTQID MANPREET Administration Amoxicillin 1,500 mg 04/23/25 10:00 04/25/25 08:29 Amoxicillin 250 Mg Capsule PO 1,500 mg BID MANPREET Administration Amoxicillin/Clavulanate Potassium 1 tab 04/23/25 10:00 04/25/25 08:28 Amox/Clav 500 Mg/125 Mg Tablet PO 1 tab BID MANPREET Administration Chlordiazepoxide HCl 25 mg 04/24/25 09:00 04/25/25 08:28 Chlordiazepoxide 25 Mg Capsule PO 25 mg BID MANPREET Administration Cyanocobalamin 500 mcg 04/24/25 11:00 04/25/25 08:28 Cyanocobalamin 500 Mcg Tablet PO 500 mcg DAILY MANPREET Administration Enoxaparin Sodium 40 mg 04/17/25 09:00 04/25/25 08:28 Enoxaparin 40 Mg/0.4 Ml Syringe SUBQ 40 mg DAILY MANPREET Administration Famotidine 20 mg 04/23/25 21:00 04/25/25 08:28 Famotidine 20 Mg Tablet PO 20 mg BID MANPREET Administration Gabapentin 300 mg 04/21/25 21:00 04/25/25 08:28 Gabapentin 300 Mg Capsule PO 300 mg DAILY MANPREET Administration Hydroxyzine Pamoate 50 mg 04/18/25 15:49 04/25/25 01:04 Hydroxyzine Pamoate 25 Mg Capsule PO 50 mg Q8H PRN Administration Anxiety Ibuprofen 400 mg 04/17/25 12:36 04/18/25 03:39 Ibuprofen 400 Mg Tablet PO 400 mg Q6HR PRN Administration temp >38.5 Lorazepam 1 mg 04/21/25 12:00 04/23/25 03:24 Lorazepam 1 Mg Tablet PO 1 mg Q1H PRN Administration CIWA > 8 Protocol Nicotine 1 patch 04/18/25 16:13 04/25/25 08:27 Nicotine 21 Mg Patch TOP 1 patch DAILY MANPREET Administration Nystatin 1 applic 04/24/25 13:00 04/25/25 08:28 Nystatin Powder 15 Gm TOP 1 applic BID MANPREET Administration Polyethylene Glycol 17 gm 04/19/25 09:00 04/25/25 08:29 Polyethylene Glycol 3350 17 Gm Packet PO Not Given DAILY [facility] Multivit/Folic Acid/Iron 1 tab 04/19/25 09:00 04/25/25 08:28 Vitamin Tablet PO 1 tab DAILY MANPREET Administration Saccharomyces Boulardii 250 mg 04/23/25 17:00 04/25/25 08:28 Saccharomyces Boulardii 250 Mg Capsule PO 250 mg BIDWM MANPREET Administration Sodium Chloride 10 ml 04/17/25 01:00 04/25/25 08:29 Sodium Chloride Flush 0.9% 10 Ml Syringe IVP 10 ml 0100,0900,1700 MANPREET Administration Sodium Chloride 10 ml 04/16/25 23:33 04/22/25 05:49 Sodium Chloride Flush 0.9% 10 Ml Syringe IVP 10 ml PRN PRN Administration NEEDED PER PROVIDER ORDERS Tamsulosin HCl 0.4 mg 04/21/25 09:00 04/25/25 08:28 Tamsulosin 0.4 Mg Capsule PO 0.4 mg DAILY MANPREET Administration Thiamine HCl 100 mg 04/19/25 09:00 04/25/25 08:28 Thiamine 100 Mg Tablet PO 100 mg DAILY MANPREET Administration Trazodone HCl 50 mg 04/18/25 21:00 04/24/25 22:23 Trazodone 50 Mg Tablet PO 50 mg HS MANPREET Administration Zinc Oxide 113 gm 04/19/25 20:16 04/22/25 04:09 Cod Liver Oil/Zinc Oxide 113 Gm Tube TOP 1 applic PRN PRN Administration Skin Care Objective Vital Signs/Intake & Output Reviewed Vital Signs: Yes Vital Signs: Vital Signs x48h Temp Pulse Pulse Resp BP Pulse Ox 04/25/25 08:00 88 20 04/25/25 07:50 97.7 F 81 24 131/73 H 92 04/25/25 04:29 98.2 F 90 20 146/75 H 92 Intake & Output: Intake & Output 04/22/25 04/23/25 04/24/25 04/25/25 23:59 23:59 23:59 23:59 Intake Total 300 / 300 770 / 770 585 / 585 Output Total 1700 / 1700 1999 / 1999 1525 / 1525 625 / 625 Balance -1400 / -1400 -1230 / -1230 -940 / -940 -625 / -625 Weight (kg) 117 kg 116 kg 116.5 kg 115.5 kg Objective General Appearance: positive No acute distress (Has baseline tachycardia that continues over 100. But no diaphoresis or tremulousness right now) and Other (Sleepy but oriented to person, place, not time. Knows why he is here.) Eyes Bilateral: positive PERRL ENT: positive No signs of dehydration Neck: positive No JVD; negative Stiff neck or Carotid bruit Respiratory: positive Chest non-tender, No respiratory distress and Breath sounds nml; negative Wheezes, Rales or Rhonchi Cardiovascular: positive Regular rate & rhythm and Tachycardia Abdomen: positive Non-tender, No organomegaly and Nml bowel sounds Skin: positive Color nml and Other (Mild erythema noted on skin folds of the antecubital fossa) Extremities: positive Non-tender, Full ROM and Nml appearance Neurologic/Psychiatric: positive Oriented x3, CN's nml (2-12), Motor nml (But slow response. Received 3 doses of p.o. Ativan last night.) and Mood/affect nml Lab Results 04/25/25 04:36 04/25/25 04:36 Other Labs: Lab Results x24hrs 04/25/25 Range/Units 04:36 WBC 8.1 (4.8-10.8) x10^3/uL RBC 3.21 L (4.70-6.10) 10^6/uL Hgb 12.0 L (14.0-18.0) g/dL Hct 36.7 L (42.0-52.0) % MCV 114.3 H (80.0-94.0) fL MCH 37.4 H (27.0-31.0) pg MCHC 32.7 (32.0-36.0) g/dL RDW 13.8 (12.0-15.0) % Plt Count 350 (130-450) 10^3/uL MPV 10.5 (7.4-11.4) fL Sodium 138 (135-145) mmol/L Potassium 3.6 (3.5-4.5) mmol/L Chloride 105 (101-111) mmol/L Carbon Dioxide 26 (21-32) mmol/L Anion Gap 7.0 (6-13) BUN 6 (6-20) mg/dL Creatinine 0.5 L (0.6-1.3) mg/dL Estimated GFR (MDRD) 178 (>89) Glucose 97 (74-104) mg/dL Calcium 8.6 (8.5-10.3) mg/dL Magnesium 2.1 (1.7-2.3) mg/dL Assessment/Plan Problem List (1) Fever: Impression: Resolved. Prior to this, patient was febrile since 04/17. Initially, was on Unasyn and vancomycin for presumed aspiration. He completed a 5-day course of this. No white count. Abdomen/pelvis CT with no obvious source of infection; does show subtle lower lung ground glass nodules, likely infectious. Also shows diffuse anasarca with no drainable ascites. MRI does show mild opacification of the maxillary sinuses. Will treat as bacterial sinusitis with oral Augmentin, high dose. Now afebrile for over 24 hours. Qualifiers: Fever type: unspecified Qualified Code(s): R50.9 - Fever, unspecified (2) Delirium tremens: Impression: Resolved. Continue librium taper. Switched to BID today. Will switch to daily today and then discontinue. Continue thiamine, multivitamin, folic acid. (3) Dehydration: Impression: Resolved. P.O. intake increasing. (4) Urinary retention: Impression: Darling catheter in place. Will remove and try TOV today. (5) Nicotine addiction: Impression: Admits to smoking 1/2 ppd. I have ordered nicotine patch 21mg daily. Qualifiers: Nicotine product type: cigarettes Substance use status: in withdrawal Qualified Code(s): F17.213 - Nicotine dependence, cigarettes, with withdrawal
[2025-04-26] MEDS: BENZOCAINE/MENTHOL LOZENGE MM PRN (01:23)
[2025-04-26 06:16] LABS: HCT - HEMATOCRIT 36.8 % (42.0-52.0); HGB - HEMOGLOBIN 12.3 g/dL (14.0-18.0); MEAN PLATELET VOLUME 10.2 fL (7.4-11.4); PLT - PLATELET COUNT 367.0 10^3/uL (130-450); RED CELL DISTRIBUTION WIDTH 13.7 % (12.0-15.0)
[2025-04-26 06:36] LABS: BUN - BLOOD UREA NITROGEN 6.0 mg/dL (6-20); CARBON DIOXIDE - CO2 26.0 mmol/L (21-32); CREATININE 0.5 mg/dL (0.6-1.3); GFR - MDRD 178.0 (>89)
[2025-04-26] MEDS ORDERED: IPRATROPIUM/ALBUTEROL 3 ML NEB INH PRN (08:05)
[2025-04-26 08:45] VITALS: O2SAT 95
--- NOTE | 2025-04-26 09:12 | Discharge Summary ---
"Discharge Summary Admit Date: 04/16/25 Discharge Date: 04/26/25 Discharging Provider: Nayely Francis MD Primary Care Provider: no PCP Code Status: Attempt Resuscitation Discharge Facility Name: [facility] DIAGNOSES Discharge Diagnoses with Status of Each Condition: 1. Alcohol withdrawal delirium with severe agitation 2. Management of intubated patient 3. Dehydration 4. Urinary retention 5. Nicotine addiction 6. Fever 7. Mastoiditis 8. Sinusitis HPI History of Present Illness: 45-year-old male who presents from [facility] with alterations in mentation. Facility reported some right sided weakness. They report that most of the falls were to his knees In the ER, lab work was overall unremarkable other than a magnesium of 1.4. Knee x-ray was obtained which showed no acute findings. He received multiple doses of Ativan and phenobarbital x 1, and still required violent restraints. CT head was performed with no acute findings. He was intubated in the ED for severe delirium tremens hospitalist was contacted for admission for delirium tremens CONSULTS | PROCEDURES Procedures: 1. Multiple chest x-rays showing initial clear chest x-ray and followed by atelectasis and/or infiltrates of the right lung. Slowly improving by discharge. 2. Head CT without acute intracranial pathology 3. Brain MRI with no acute intracranial process. He has patchy opacification of the right mastoid and opacification of the maxillary sinus right greater than left 4. abdomen pelvis CT with hepatomegaly, moderate hepatic steatosis. Bilateral lower lung groundglass nodules most likely infectious/inflammatory. Mild splenomegaly. Mild to moderate diffuse body wall anasarca. No ascites. 5. Blood cultures from April 17 negative HOSPITAL COURSE Hospital Course: The patient was placed in the ICU and kept intubated due to the severity of his withdrawal that required not only Librium and Ativan but propofol. For sedation he was on either Versed or fentanyl. He was finally extubated on April 18. But withdrawal continued. He had was tachycardic, tremulous, diaphoretic. He began spiking a fever and workup included blood cultures, urinalysis with culture of indicated, repeat chest x-ray, and an MRI of the head since CT was already done. The only source of infection we could find was the mastoiditis and sinusitis which was treated empirically with intravenous antibiotics. By April 23 he was alert and oriented but profoundly deconditioned and weak. We were able to taper off all of his benzodiazepine by discharge. On the he was frustrated about his lack of mobility and he cannot believe how weak he has gotten. He was reluctantly agreeable to physical rehab. He was medically cleared on April 25 and discharged today to long-term facility for rehab.We would recommend that he maintain folate and thiamine supplementation with vitamin and thiamine. At discharge blood pressure is 116/86, pulse 94, respirations 20, temp 36.2. O2 sat 95%. He is 5 foot 7 inches tall, 114 kg. He is eating anywhere from 40 to 100% of his food. Weight on admission was 115.6 kg. He peaked at 120 kg with fluid resuscitation. He has diuresed enough that he is down to 114 kg today. Neck has shotty adenopathy and is supple. Lungs are clear to auscultation and percussion with diminished breath sounds at the bases. An occasional cough but no respiratory distress. Regular rate and rhythm with no tachycardia. An abdomen that soft, nontender with normal bowel sounds. Extremities have trace edema at his ankles. He has more edema around his buttocks. He is able to transfer from edge of bed with moderate assist x 1. But he needs max cueing for midline stability and occasional tactile assist. He can transfer from sit to stand with a front wheel walker with a mod assist x 2. He is unable to maintain standing due to weakness and disorientation. He required a Yuli lift to transfer to the bedside chair. Once transferred to a chair he was able to maintain his truncal stability. Goal would be for him to return to independent activity with regards to transfers, dressing, bathing. He was able to drive a car and take care of the household before admission. Greater than 30 minutes was spent coordinating discharge This document was made in part using voice recognition software. While efforts are made to proofread this document, sound alike and grammatical errors may occur. ALLERGIES Allergies Allergy/AdvReac Type Severity Reaction Status Date / Time cashew nut Allergy Unknown Unknown Verified 04/16/25 17:40 MEDICATIONS Ambulatory Orders Medication Instructions Recorded Confirmed Saccharomyces boulardii 250 mg 250 mg PO BIDWM #60 cap s 04/26/25 capsule acetaminophen 325 mg tablet 650 mg (2 x 325 mg) PO Q4H R PRN 04/26/25 Pain 1 to 4, or Fever #30 tabs amoxicillin 250 mg capsule 1,500 mg (6 x 250 mg) PO BI D #60 04/26/25 caps amoxicillin 500 mg-potassium 1 tab PO BID #60 tabs clavulanate 125 mg tablet benzocaine 15 mg-menthol 3.6 mg 1 dejon mucous membrane Q2HR PRN 04/26/25 lozenges (Cepacol Sore Throat Throat pain #16 ea (benzocaine-menthol)) cyanocobalamin (vitamin B-12) 500 500 mcg PO DAILY #30 tabs 04/26/25 mcg tablet hydroxyzine pamoate 25 mg capsule 50 mg (2 x 25 mg) PO Q8H PRN 04/26/25 Anxiety #30 caps vit,calcium 27-ferrous 1 tab PO DAILY #30 tab s 04/26/25 fum 60 mg iron-folic acid 1 mg tablet (Trinatal Rx 1) tamsulosin 0.4 mg capsule 0.4 mg PO DAILY #30 caps thiamine mononitrate (vit B1) 100 100 mg PO DAILY #30 tabs 04/26/25 mg tablet (Vitamin B-1 (mononitrate)) trazodone 50 mg tablet 50 mg PO HS #30 tabs 5 zinc oxide-cod liver oil 40 % 1 applic topical BID #28 grams 04/26/25 topical paste (Desitin) PHYSICAL EXAM AT DISCHARGE Vital Signs: Vital Signs x48h Temp Pulse Resp BP Pulse Ox 04/26/25 08:44 36.2 C L 94 20 116/86 95 04/26/25 04:15 36.7 C 82 18 152/88 H 96 LABS 04/26/25 05:31 04/26/25 05:31 TIME SPENT Time Spent in Discharge (Minutes): 40 Discharge Plan Discharge Patient Disposition: [facility] DC/Xfer Condition: Good Medically Cleared Date:: 04/25/25 Prescriptions: New acetaminophen 325 mg Tablet 650 mg PO Q4HR PRN (Reason: Pain 1 to 4, or Fever) Qty: 30 0RF amoxicillin-pot clavulanate 500-125 mg Tablet 1 tab PO BID Qty: 60 0RF Rx Instructions: take until 05/03/25 amoxicillin 250 mg Capsule 1,500 mg PO BID Qty: 60 0RF Rx Instructions: take until 05/03/25 Cepacol Sore Throat (lizbeth-men) 15-3.6 mg Lozenge 1 dejon mucous membrane Q2HR PRN (Reason: Throat pain) Qty: 16 0RF Desitin 40 % Paste 1 applic topical BID Qty: 28 0RF cyanocobalamin (vitamin B-12) 500 mcg Tablet 500 mcg PO DAILY Qty: 30 0RF hydroxyzine pamoate 25 mg Capsule 50 mg PO Q8H PRN (Reason: Anxiety) Qty: 30 0RF Trinatal Rx 1 60 mg iron-1 mg Tablet 1 tab PO DAILY Qty: 30 0RF Saccharomyces boulardii 250 mg Capsule 250 mg PO BIDWM Qty: 60 0RF Rx Instructions: take until 05/03/25 tamsulosin 0.4 mg Capsule 0.4 mg PO DAILY Qty: 30 0RF thiamine mononitrate (vit B1) [Vitamin B-1 (mononitrate)] 100 mg Tablet 100 mg PO DAILY Qty: 30 0RF trazodone 50 mg Tablet 50 mg PO HS Qty: 30 0RF Discontinued ondansetron HCl 4 mg tablet 4 mg PO Q8H gabapentin 300 mg capsule 300 mg PO DAILY hydroxyzine pamoate [Vistaril] 25 mg capsule 50 mg PO Q8H PRN (Reason: anxiety) trazodone 50 mg tablet 50 mg PO HS clonidine HCl 0.1 mg tablet 0.1 mg PO Q8H Print Language: Sammarinese Patient Instructions: Alcohol Addiction Stand Alone Forms: SNF Discharge Vitals documented within 30 minutes of discharge?: Yes"
[2025-04-26 11:32] VITALS: BP 111/70; TEMP 97.5
== END 2025-04-26 11:41 | DRG 896 ==
LOC: ED 17:31 → ICU 23:13 → MS2 04-23 09:18
PROVIDERS: ADMIT Nurse Practitioner Acute Care; ATTEND Nurse Practitioner Acute Care